=== PATIENT | male | born 1985 | race Caucasian/White ===

== ENCOUNTER 2021-10-06 12:07 | Outpatient (REF) | payer OTHER, SELFPAY | END 2021-10-06 12:08 | disposition home or self-care (01) | LOC: HO.LNP 12:07 | PROVIDERS: Visit Provider Physician Assistant Medical | DX: J02.9 Acute pharyngitis, unspecified (principal) | CPT/HCPCS: 87071 ==

== ENCOUNTER 2023-02-08 06:49 | Outpatient (REF) | payer OTHER, SELFPAY ==
[2023-02-08 12:40] LABS: Alanine Aminotransferase 56 U/L (0-40); Anion Gap 15 (12-20); Aspartate Amino Transferase 34 U/L (5-37); Blood Urea Nitrogen 14 mg/dL (9-16); Calcium 9.4 mg/dL (8.4-10.2); Carbon Dioxide 26 mmol/L (22-29); Chloride 107 mmol/L (96-108); Cholesterol 280 mg/dL; Estimated Glomerular Filt Rate > 60; Glucose Fasting 94 mg/dL (60-99); HDL Cholesterol 45 mg/dL; LDL Cholesterol Calculated 200 mg/dl; Potassium 4.6 mmol/L (3.3-5.1); Sodium 143 mmol/L (135-145); Triglycerides 177 mg/dL
== END 2023-02-08 06:50 | disposition home or self-care (01) ==
LOC: HO.HMGCLDS 06:49
PROVIDERS: PCP Internal Medicine; Visit Provider Internal Medicine
DX: E78.5 Hyperlipidemia, unspecified (principal); I10 Essential (primary) hypertension
CPT/HCPCS: 36415; 80048; 80061; 84450; 84460

== ENCOUNTER 2023-05-05 07:06 | Outpatient (REF) | payer OTHER, SELFPAY ==
[2023-05-05 12:00] LABS: Alanine Aminotransferase 71 U/L (0-40); Anion Gap 11 (12-20); Aspartate Amino Transferase 50 U/L (5-37); Blood Urea Nitrogen 17 mg/dL (9-16); Calcium 9.3 mg/dL (8.4-10.2); Carbon Dioxide 27 mmol/L (22-29); Chloride 106 mmol/L (96-108); Cholesterol 217 mg/dL; Estimated Glomerular Filt Rate > 60; Glucose Fasting 89 mg/dL (60-99); HDL Cholesterol 44 mg/dL; LDL Cholesterol Calculated 103 mg/dl; Potassium 3.4 mmol/L (3.3-5.1); Sodium 141 mmol/L (135-145); Triglycerides 353 mg/dL
== END 2023-05-05 07:07 | disposition home or self-care (01) ==
LOC: HO.HMGCLDS 07:06
PROVIDERS: PCP Internal Medicine; Visit Provider Internal Medicine
DX: I10 Essential (primary) hypertension (principal); E78.5 Hyperlipidemia, unspecified
CPT/HCPCS: 36415; 80048; 80061; 82550; 84450; 84460

== ENCOUNTER 2023-05-06 12:53 | Outpatient (AMB) | payer OTHER, SELFPAY ==
--- NOTE | 2023-05-06 13:15 | A.OFFPC_ITS ---
Vital Signs 05/06/23 13:16 Height 6 ft Weight 226 lb BMI 30.6 BP 128/90 H Blood Pressure Location Lt brachial Position Sitting Pulse 83 Pulse Source Pulse Oximeter Pulse Oximetry (%) 98 Oxygen Delivery Method Room Air Intake Visit Reasons: Medication review/labs Intake Note: Pt is here today c/o labs and med review Allergies No Known Allergies Allergy (Verified 06/28/23 02:30) Medication List - Last Reconciled 06/28/23 by Noemí Sanchez MD hydrochlorothiazide 12.5 mg PO QAM metoprolol succinate ER 50 mg PO DAILY rosuvastatin 5 mg PO DAILY Tobacco use date assessed: 05/06/23 Dental Screening Dental Screen Date: 05/06/23 Did you have a dental visit in the last 12 months?: No HPI Medication review/labs HPI Details 37-year-old male with dyslipidemia, and hypertension, here today for follow-up. Has been feeling well, compliant with medications, no complaints at present time. [facility] Medical History Anxiety and depression Dyslipidemia Essential hypertension Family History Father Substance use disorder Mother Syncope Sister No problems noted. Son No problems noted. Daughter No problems noted. Social History Housing: House Alcohol intake: current Patient Tobacco Use Status: Former Tobacco user e-Cigarette/Vaping Use: Currently Using Second Hand Smoke Exposure: Yes service: No Current occupational status: employed Current occupation: [employer] Current occupational exposures/hazards: Yes Cognitive needs: No Hearing needs: No Vision needs: Yes Questionnaire Thrive Questionnaire Date Thrive assessed: 11/05/22 AUDIT C Alcohol Use Questionnaire (AUDIT-C) 1. How often do you have a drink containing alcohol?: Monthly or less 2. How many drinks containing alcohol do you have on a typical day when you are drinking?: 1 or 2 3. How often do you have six or more drinks on one occasion?: Never Total Score: 1 ALEXX-7 AMB Questionnaire ALEXX-7 Date ALEXX - 7 assessed: 10/30/21 Source: Developed by Drs. Finn Leroy, Karen B.W. Angel Humphrey and colleagues, with an educational modesto from [employer]. Review of Systems Const Denies body aches, Denies fever(s), Denies headache(s) and Denies weakness ENT Denies dizziness, Denies headache(s), Denies nasal congestion, Denies nasal discharge and Denies sore throat Card Denies chest pain, Denies lightheadedness and Denies dyspnea Resp Denies chest congestion, Denies cough and Denies dyspnea GI Denies abdominal pain, Denies change in bowel habits and Denies heartburn Musc Reports no additional complaints Neuro Denies dizziness, Denies headache(s), Denies Sensory deficit (Neuro) and Denies weakness Physical exam (Primary Care) Vital Signs: Last Vital Signs Pulse 83 05/06/23 13:16 BP 128/90 H 05/06/23 13:16 Pulse Ox 98 05/06/23 13:16 Oxygen Delivery Method Room Air 05/06/23 13:16 BMI result Body Mass Index 30.6 Tobacco/Smoking Status: Tobacco use Status Tobacco use date assessed 05/06/23 05/06/23 13:24 Patient Tobacco Use Status Former Tobacco user 05/06/23 13:24 e-Cigarette/Vaping Use Currently Using 05/06/23 13:24 Thrive Assessment: Date of Thrive Assessment Date Thrive assessed 11/05/22 05/06/23 13:24 Const General: cooperative, no acute distress and alert Orientation/consciousness: patient oriented x3 HENMT Face and sinus: Yes face symmetric Mouth: Normal oral and palatal mucosa present, oropharynx normal and moist mucous membranes Neck Neck: Yes full ROM and Yes no lymphadenopathy Thyroid: Thyroid normal Resp Effort & Inspection: normal respiratory effort and able to speak in complete sentences Auscultation: clear to auscultation bilaterally Cardio Rate: regular rate Rhythm: regular rhythm Heart sounds: S1 normal heart sound present and S2 normal heart sound present GI Inspection: Yes normal to inspection Palpation (GI): Soft to palpation Auscultation: normal bowel sounds Neuro General: patient oriented x3, gait normal, moves all extremities, no focal motor deficits and CN's II-XI intact bilaterally Cognition (Neuro): normal cognition Gait exam (Neuro): Normal gait present Sensory Exam: No Sensory deficit (Neuro) Extrem General: Yes normal to inspection, Yes full ROM, Yes no pedal edema and Yes normal gait Results Reviewed Results Reviewed: RUN: 05/06/23 1351 PAGE 1 [facility] [address] [place] [id number] Tax Representative: Demario Lopez M.D. Specimen Inquiry Name: Ren Hawley Age/Sex: 37/M : 1985 Unit#: [id number] Attend Dr: Noemí Sanchez MD Re05/05/23 Status: DEP REF Location: [facility] Disch: SPEC : [id number] DYLLAN: 05/05/23 STATUS: COMP REQ : [id number] RECD: 05/05/23-[address]: Noemí Sanchez MD COMP: 05/05/23-1199 ENTERED: 05/05/23-[address]: ORDERED: Met Prof Fast, AST, ALT, CK Total, Lipid Panel Test Result Flag Reference Site Sodium 141 135-145 mmol/L Potassium 3.4 # 3.3-5.1 mmol/L CL 106 96-108 mmol/L CO2 27 22-29 mmol/L Gap 11 L 12-20 BUN 17 H 9-16 mg/dL Creat 0.86 0.5-1.4 mg/dL EGFR > 60 NOTE: For -Uz[place] individuals, multiply the result by 1.210. Chronic Kidney Disease: Estimated GFR < 60 mL/min/1.73m2 Severe Kidney Disease: Estimated GFR < 15 mL/min/1.73m2 FBS 89 60-99 mg/dL CA 9.3 8.4-10.2 mg/dL AST (GOT) 50 H 5-37 U/L ALT (GPT) 71 H 0-40 U/L CK Total 101 38-174 U/L Triglyceride 353 mg/dL Desirable Triglyceride: less than 150 mg/dL Borderline High Triglyceride 150-199 mg/dL High Triglyceride: 200-499 mg/dL Very High Triglyceride: greater than or equal to 5OO mg/dL Chol 217 mg/dL Desirable Cholesterol: less than 200 mg/dL Borderline High Cholesterol: 200-239 mg/dL High Cholesterol: greater than 239 mg/dL LDL Calculated 103 mg/dl Desirable LDL: less than 100 mg/dL Near Optimal/Above Optimal LDL: 110-129 mg/dL Borderline High LDL: 130-159 mg/dL High LDL: 160-189 mg/dL Very High LDL: greater than or equal to 190 mg/dL HDL 44 mg/dL Desirable HDL: greater than 40 mg/dL Note: This HDL assay may give artificially low results in patients with liver disease. Assessment and Plan Assessment & Plan (1) Essential hypertension: Code(s): I10 - Essential (primary) hypertension Plan: Blood pressure at goal of less than 130/80. Continue with metoprolol ER 50 mg daily hydrochlorothiazide 12.5 mg daily. Reinforced importance of following a low sodium diet, getting regular exercise, and lowering stress levels. (2) Dyslipidemia: Code(s): E78.5 - Hyperlipidemia, unspecified Plan: Reviewed recent fasting lipid profile with patient with levels within normal limits . Continue with rosuvastatin 5 mg daily , in addition to adherence to low-cholesterol diet and regular exercise, at least 30 minutes 3 to 4 times a week. Advised patient to make healthy food choices, eat more fruits, vegetables, whole grains, wild caught fish and low-fat dairy. Limit amount of meat and fried or fatty food products, as well as processed foods and fast foods. Follow-up scheduled with repeat fasting lipid panel in 6 months. Orders: Orders Alanine Aminotransferase 4 Months I10 - Essential (primary) hypertension, E78.5 - Hyperlipidemia, unspecified Aspartate Amino Transferase 4 Months I10 - Essential (primary) hypertension, E78.5 - Hyperlipidemia, unspecified Lipid Panel 4 Months I10 - Essential (primary) hypertension, E78.5 - Hyperlipidemia, unspecified Basic Metabolic Panel Fasting 4 Months I10 - Essential (primary) hypertension, E78.5 - Hyperlipidemia, unspecified Medications: Refilled metoprolol succinate ER 50 mg PO DAILY 90 tabs 1RF Coding Level of Care Code Est Pt Level 3 (79264) Diagnoses Essential hypertension I10 Dyslipidemia E78.5
[2023-05-06 13:16] VITALS: BP 128/90; PULSE 83; O2SAT 98; BMI 30.6
== END 2023-05-06 14:43 | disposition home or self-care (01) ==
PROVIDERS: Visit Provider Internal Medicine
DX: I10 Essential (primary) hypertension (principal); E78.5 Hyperlipidemia, unspecified
CPT/HCPCS: 99213

== ENCOUNTER 2023-09-07 07:23 | Outpatient (REF) | payer OTHER, SELFPAY ==
[2023-09-07 12:35] LABS: Alanine Aminotransferase 50 U/L (0-40); Anion Gap 14 (12-20); Aspartate Amino Transferase 32 U/L (5-37); Blood Urea Nitrogen 17 mg/dL (9-16); Calcium 9.6 mg/dL (8.4-10.2); Carbon Dioxide 24 mmol/L (22-29); Chloride 107 mmol/L (96-108); Cholesterol 199 mg/dL (<200); Estimated Glomerular Filt Rate > 60; Glucose Fasting 95 mg/dL (60-99); HDL Cholesterol 45 mg/dL (>40); LDL Cholesterol Calculated 109 mg/dL (<100); Potassium 3.7 mmol/L (3.3-5.1); Sodium 141 mmol/L (135-145); Triglycerides 226 mg/dL (<150)
== END 2023-09-07 07:24 | disposition home or self-care (01) ==
LOC: HO.HMGCLDS 07:23
PROVIDERS: PCP Internal Medicine; Visit Provider Internal Medicine
DX: I10 Essential (primary) hypertension (principal); E78.5 Hyperlipidemia, unspecified
CPT/HCPCS: 36415; 80048; 80061; 84450; 84460

== ENCOUNTER 2023-09-08 15:06 | Outpatient (AMB) | payer OTHER, SELFPAY ==
--- NOTE | 2023-09-08 15:11 | A.OFFPC_ITS ---
Vital Signs 09/08/23 15:12 Height 6 ft Weight 222 lb 4 oz BMI 30.1 BP 138/98 H Blood Pressure Location Rt brachial Position Sitting Pulse 86 Pulse Source Pulse Oximeter Pulse Oximetry (%) 95 Oxygen Delivery Method Room Air Intake Visit Reasons: follow up BP Intake Note: pt is here to follow up on lab results and HTN Allergies No Known Allergies Allergy (Verified 09/08/23 15:51) Medication List - Last Reconciled 09/08/23 by Noemí Sanchez MD hydrochlorothiazide 12.5 mg PO QAM metoprolol succinate ER 50 mg PO DAILY rosuvastatin 5 mg PO DAILY sildenafil (Viagra) 100 mg PO DAILY PRN Tobacco use date assessed: 09/08/23 Dental Screening Dental Screen Date: 09/08/23 Did you have a dental visit in the last 12 months?: No Did you have a dental problem in the last 6 months where you did not have access to dental care?: No Was dental information given to patient?: No HPI follow up BP HPI Details 38-year-old male with hypertension curre ntly on HCTZ 12.5 mg in the morning and metoprolol succinate ER 50 mg at night. Blood pressure today is slightly elevated. He had recent fasting labs done which showed presence of hypertriglyceridemia. Has been feeling well, has started going to the gym again to exercise, and has been trying to follow recommended diet. [facility] Medical History (Updated 09/09/23 @ 04:59 by Noemí Sanchez MD) Hypertriglyceridemia Anxiety and depression Essential hypertension Family History Father Substance use disorder Mother Syncope Sister No problems noted. Son No problems noted. Daughter No problems noted. Social History Housing: House Alcohol intake: current Patient Tobacco Use Status: Former Tobacco user e-Cigarette/Vaping Use: Currently Using Second Hand Smoke Exposure: Yes service: No Current occupational status: employed Current occupation: [employer] Current occupational exposures/hazards: Yes Cognitive needs: No Hearing needs: No Vision needs: Yes Questionnaire Thrive Questionnaire Date Thrive assessed: 11/05/22 ALEXX-7 AMB Questionnaire ALEXX-7 Date ALEXX - 7 assessed: 10/30/21 Source: Developed by Drs. Finn Leroy, Karen Humphrey, Angel Meeks and colleagues, with an educational modesto from [employer]. Review of Systems Const Denies body aches, Denies fever(s), Denies headache(s) and Denies weakness ENT Denies dizziness, Denies headache(s), Denies nasal congestion and Denies nasal discharge Card Denies chest pain, Denies lightheadedness and Denies dyspnea Resp Denies chest congestion, Denies cough and Denies dyspnea GI Denies abdominal pain, Denies change in bowel habits and Denies heartburn Musc Reports no additional complaints Neuro Denies dizziness, Denies headache(s), Denies Sensory deficit (Neuro) and Denies weakness Physical exam (Primary Care) Vital Signs: Last Vital Signs Pulse 86 09/08/23 15:12 BP 138/98 H 09/08/23 15:12 Pulse Ox 95 09/08/23 15:12 Oxygen Delivery Method Room Air 09/08/23 15:12 BMI result Body Mass Index 30.1 Tobacco/Smoking Status: Tobacco use Status Tobacco use date assessed 09/08/23 09/08/23 15:16 Patient Tobacco Use Status Former Tobacco user 09/08/23 15:16 e-Cigarette/Vaping Use Currently Using 09/08/23 15:16 Thrive Assessment: Date of Thrive Assessment Date Thrive assessed 11/05/22 09/08/23 15:16 Const General: cooperative, no acute distress and alert Orientation/consciousness: patient oriented x3 HENMT Face and sinus: Yes face symmetric Mouth: Normal oral and palatal mucosa present, oropharynx normal and moist mucous membranes Neck Neck: Yes full ROM and Yes no lymphadenopathy Thyroid: Thyroid normal Resp Effort & Inspection: normal respiratory effort and able to speak in complete sentences Auscultation: clear to auscultation bilaterally Cardio Rate: regular rate Rhythm: regular rhythm Heart sounds: S1 normal heart sound present and S2 normal heart sound present GI Inspection: Yes normal to inspection Palpation (GI): Soft to palpation Auscultation: normal bowel sounds Neuro General: patient oriented x3, gait normal, moves all extremities, no focal motor deficits and CN's II-XI intact bilaterally Cognition (Neuro): normal cognition Gait exam (Neuro): Normal gait present Sensory Exam: No Sensory deficit (Neuro) Extrem General: Yes normal to inspection, Yes full ROM, Yes no pedal edema and Yes normal gait Results Reviewed Results Reviewed: ENTERED: 09/07/23 FENG DUMONT: ORDERED: Met Prof Fast, AST, ALT, Lipid Panel Test Result Flag Reference Site Sodium 141 135-145 mmol/L Potassium 3.7 3.3-5.1 mmol/L CL 107 96-108 mmol/L CO2 24 22-29 mmol/L Gap 14 12-20 BUN 17 H 9-16 mg/dL Creat 0.81 0.5-1.4 mg/dL EGFR > 60 NOTE: For -[place] individuals, multiply the result by 1.210. Chronic Kidney Disease: Estimated GFR < 60 mL/min/1.73m2 Severe Kidney Disease: Estimated GFR < 15 mL/min/1.73m2 FBS 95 60-99 mg/dL CA 9.6 8.4-10.2 mg/dL AST (GOT) 32 5-37 U/L ALT (GPT) 50 H 0-40 U/L Triglyceride 226 H <150 mg/dL Desirable Triglyceride: less than 150 mg/dL Borderline High Triglyceride 150-199 mg/dL High Triglyceride: 200-499 mg/dL Very High Triglyceride: greater than or equal to 5OO mg/dL Cholesterol 199 <200 mg/dL Desirable Cholesterol: less than 200 mg/dL Borderline High Cholesterol: 200-239 mg/dL High Cholesterol: greater than 239 mg/dL LDL Calculated 109 H <100 mg/dL Desirable LDL: less than 100 mg/dL Near Optimal/Above Optimal LDL: 110-129 mg/dL Borderline High LDL: 130-159 mg/dL High LDL: 160-189 mg/dL Very High LDL: greater than or equal to 190 mg/dL HDL 45 >40 mg/dL Desirable HDL: greater than 40 mg/dL Note: This HDL assay may give artificially low results in patients with liver disease. Assessment and Plan Assessment & Plan (1) Essential hypertension: Code(s): I10 - Essential (primary) hypertension Plan: Blood pressure goal is less than 130/80. Continue with hydrochlorothiazide 25 mg daily in a.m. and added losartan 25 mg in the morning, continue with metoprolol succinate ER 50 mg to be taken at night with supper.. Reinforced importance of following a low sodium diet, getting regular exercise, and lowering stress levels. (2) Hypertriglyceridemia: Code(s): E78.1 - Pure hyperglyceridemia Plan: Reviewed recent fasting lipid profile with patient with high triglyceride levels, with normal LDL cholesterol. Continue with rosuvastatin , in addition to adherence to low-cholesterol diet and regular exercise, at least 30 minutes 3 to 4 times a week. Advised patient to make healthy food choices, eat more fruits, vegetables, whole grains, wild caught fish and low-fat dairy. Limit amount of meat and fried or fatty food products, as well as processed foods and fast foods. Follow-up scheduled with repeat fasting lipid panel in months. Medications: New losartan 25 mg PO DAILY 30 tabs 1RF Coding Level of Care Code Est Pt Level 3 (92386) Diagnoses Essential hypertension I10 Hypertriglyceridemia E78.1
[2023-09-08 15:12] VITALS: BP 138/98; PULSE 86; O2SAT 95; BMI 30.1
== END 2023-09-08 17:29 | disposition home or self-care (01) ==
PROVIDERS: PCP Internal Medicine; Visit Provider Internal Medicine
DX: I10 Essential (primary) hypertension (principal); E78.1 Pure hyperglyceridemia
CPT/HCPCS: 99213

== ENCOUNTER 2023-09-19 09:27 | Outpatient (AMB) | payer OTHER, SELFPAY ==
--- NOTE | 2023-09-19 10:26 | MHC.OFFWIV ---
Intake Vital Signs 09/19/23 10:29 Height 6 ft Weight 102.115 kg BMI 30.5 BP 128/86 Blood Pressure Location Lt brachial Position Sitting Pulse 78 Pulse Source Pulse Oximeter Temp 98.6 F Temp Source Oral Pulse Oximetry (%) 97 Oxygen Delivery Method Room Air Intake Visit Reasons: EP, dizziness, ear blockage ([phone]) Intake Note: pt woke Tuesday with both ears blocked and he flushed his ears but now one ear is still blocked and now pt is dizzy and has a constant wind sound in his ears Patient Tobacco Use Status: Former Tobacco user Allergies No Known Allergies Allergy (Verified 09/19/23 10:28) HPI EP, dizziness, ear blockage ([phone]) HPI Details Patient presents with discomfort in his ears and ear blockage. He called his PCP told him to use OTC care from the pharmacy he did have success removing wax from the right ear but now it feels like he is hearing a wind sound in that ear. The left ear continues to be completely blocked. He is having mild dizziness since this without focal weakness. He admits to some nasal and ear congestion. [facility] Medical History (Updated 09/09/23 @ 04:59 by Noemí Sanchez MD) Hypertriglyceridemia Anxiety and depression Essential hypertension Family History Father Substance use disorder Mother Syncope Sister No problems noted. Son No problems noted. Daughter No problems noted. Social History Housing: House Alcohol intake: current Patient Tobacco Use Status: Former Tobacco user e-Cigarette/Vaping Use: Currently Using Second Hand Smoke Exposure: Yes service: No Current occupational status: employed Current occupation: [employer] Current occupational exposures/hazards: Yes Cognitive needs: No Hearing needs: No Vision needs: Yes Review of Systems Const Reports as per HPI and Reports no additional complaints ENT Reports no additional complaints and Reports as per HPI Card Reports as per HPI and Reports no additional complaints Resp Reports as per HPI and Reports no additional complaints Neuro Reports no additional complaints, Reports as per HPI and Denies Abnormal speech present Physical Exam Vital Signs: Last Vital Signs Temp 98.6 F 09/19/23 10:29 Pulse 78 09/19/23 10:29 BP 128/86 11/06/23 10:29 Pulse Ox 97 09/19/23 10:29 Oxygen Delivery Method Room Air 09/19/23 10:29 BMI result Body Mass Index 30.5 Const General: cooperative, comfortable and no acute distress Orientation/consciousness: patient oriented x3 HEENT Head: Yes normal to inspection Ears: hearing grossly normal bilaterally, TM normal on the right, mastoids normal, no periauricular adenopathy and Abnormal EAC present cerumen impaction on the left General nose exam: Normal nasal mucous membranes and turbinates present Eyes Pupils: Equal, round and reactive pupils present Resp Effort & Inspection: normal respiratory effort Auscultation: clear to auscultation bilaterally Cardio Rate: regular rate Rhythm: regular rhythm Heart sounds: S1 normal heart sound present and S2 normal heart sound present Neuro General: patient oriented x3 and gait normal Cranial nerves: Yes CN's II-XII intact bilaterally and Yes Equal, round and reactive pupils present Cognition (Neuro): normal cognition Speech: No Abnormal speech present Gait exam (Neuro): Normal gait present Motor exam (neuro): 5/5 motor strength present throughout Office Procedures Cerumen Removal From which ear canal was the cerumen removed: left Removal: irrigation Notes: patient tolerated procedure well, no complications and ear canal clear [id number] Irrigation/Lavage Assessment & Plan Assessment & Plan (1) Cerumen impaction: Code(s): H61.20 - Impacted cerumen, unspecified ear Qualifiers: Laterality: left Qualified Code(s): H61.22 - Impacted cerumen, left ear Plan: Cerumen successfully removed with lavage. Patient tolerated procedure well TM normal and canal clear. (2) Eustachian tube dysfunction: Code(s): H69.90 - Unspecified Eustachian tube disorder, unspecified ear Qualifiers: Laterality: bilateral Qualified Code(s): H69.93 - Unspecified Eustachian tube disorder, bilateral Plan: Patient to trial a few days of Sudafed to see if this resolves the fluid sensation in his ears and improves as mild vertigo. Return to clinic if symptoms do not improve. ER vertigo with severe or develops weakness or other symptoms. Coding Level of Care Code Est Pt Level 3 (70913) Diagnoses Impacted cerumen of left ear H61.22 Laterality: left Dysfunction of both eustachian tubes H69.93 Laterality: bilateral CPT Codes Office Procedure - CPT: 53059-Xwv Irrigation/Lavage ([id number])
[2023-09-19 10:29] VITALS: BP 128/86; PULSE 78; TEMP 37; O2SAT 97; BMI 30.5
== END 2023-09-19 10:59 | disposition home or self-care (01) ==
PROVIDERS: PCP Internal Medicine; Visit Provider Physician Assistant
DX: H69.93 Unspecified Eustachian tube disorder, bilateral (principal); H61.22 Impacted cerumen, left ear
CPT/HCPCS: 69209; 99213

== ENCOUNTER 2023-12-28 10:51 | Outpatient (AMB) | payer OTHER, SELFPAY ==
[2023-12-28 11:05] VITALS: BP 120/90; PULSE 78; O2SAT 96; BMI 30.8
--- NOTE | 2023-12-28 11:05 | MHC.PC.OV ---
Vital Signs 12/28/23 11:05 Height 6 ft Weight 227 lb BMI 30.8 BP 120/90 H Blood Pressure Location Lt brachial Position Sitting Pulse 78 Pulse Source Pulse Oximeter Pulse Oximetry (%) 96 Oxygen Delivery Method Room Air Intake Visit Reasons: Annual PE Intake Note: Pt is here today for his PE Allergies No Known Allergies Allergy (Verified 12/28/23 11:32) Medication List - Last Reconciled 12/28/23 by Noemí Sanchez MD hydrochlorothiazide 12.5 mg PO QAM losartan 25 mg PO DAILY metoprolol succinate ER 50 mg PO DAILY rosuvastatin 5 mg PO DAILY sildenafil (Viagra) 100 mg PO DAILY PRN Tobacco use date assessed: 12/28/23 Dental Screening Dental Screen Date: 12/28/23 Did you have a dental visit in the last 12 months?: No Was dental information given to patient?: Patient has dentist HPI Annual PE HPI Details 38-year-old male with hypertension, hyperlipidemia, and history of erectile dysfunction, here today for his physical exam. Blood pressure stable and controlled on present treatment. Last fasting lipids showed elevated triglycerides but normal LDL cholesterol. Not following any particular diet, and does not get any regular exercise. Positive PHQ-9 and alexx score on today's visit. Previously was on escitalopram . States that he is able to control his anxiety and mood swings through behavioral techniques, does not want to start any medication at present time and does not want to seek counseling. Patient states also that he has been noticing some numbness and tingling in both hands when he wakes up in the morning, goes away once he starts moving around. He also has been noticing some tremors in both hands, not accompanied by any weakness. [facility], [facility] Medical History (Updated 12/29/23 @ 01:38 by Noemí Sanchez MD) Alcohol use disorder Tremor of left hand Numbness and tingling in both hands Hypertriglyceridemia Anxiety and depression Essential hypertension Family History Father Substance use disorder Mother Syncope Sister No problems noted. Son No problems noted. Daughter No problems noted. Social History Housing: House Alcohol intake: current Patient Tobacco Use Status: Former Tobacco user e-Cigarette/Vaping Use: Currently Using Second Hand Smoke Exposure: Yes service: No Current occupational status: employed Current occupation: [employer] Current occupational exposures/hazards: Yes Cognitive needs: No Hearing needs: No Vision needs: Yes Questionnaire PHQ-9 Over the last 2 weeks, how often have you been bothered by any of the following problems? 1. Little interest or pleasure in doing things: not at all 2. Feeling down, depressed, or hopeless: several days 3. Trouble falling or staying asleep, or sleeping too much: several days 4. Feeling tired or having little energy: several days 5. Poor appetite or overeating: several days 6. Feeling bad about yourself - or that you are a failure or have let yourself or your family down: several days 7. Trouble concentrating on things, such as reading the newspaper or watching television: not at all 8. Moving or speaking so slowly that other people could have noticed. Or the opposite - being so fidgety or restless that you have been moving around a lot more than usual: several days 9. Thoughts that you would be better off or of hurting yourself in some way: not at all Total score: 6 Depression Screening Interpretation: Positive Depression Screening Follow-up: Existing condition and Community Mental Health Worker F/U Depression Screening Done: Yes 94079 - PHQ-9 Billing: Yes Source: Developed by Drs. Finn Leroy, Karen Humphrey, Angel Meeks and colleagues, with an educational modesto from [employer]. Thrive Questionnaire Date Thrive assessed: 12/28/23 I am a: Patient What is your living situation today?: I have a steady place to live Within the past 12 months, did the food you bought not last and you didn't have the money to get more?: Sometimes True Within the past 12 months, did you worry whether your food would run out before you got money to buy more?: Sometimes True Do you have trouble paying for medicines?: No Do you have trouble getting transportation to medical appointments?: No Do you have trouble paying your heating and electricity bill?: No Do you have trouble taking care of your child, family member or friend?: No Do you have trouble with day-to-day activities such as bathing, preparing meals, shopping, managing finances, etc.?: No Are you currently unemployed and looking for a job?: No Are you interested in more education?: No THRIVE Score: 2 AUDIT C Alcohol Use Questionnaire (AUDIT-C) 1. How often do you have a drink containing alcohol?: 4 or more times a week 2. How many drinks containing alcohol do you have on a typical day when you are drinking?: 3 or 4 3. How often do you have six or more drinks on one occasion?: Weekly Total Score: 8 Score Reviewed/Action Taken: Yes ALEXX-7 AMB Questionnaire ALEXX-7 Date ALEXX - 7 assessed: 12/28/23 Feeling nervous, anxious, or on edge: 2 = More than half the days Not being able to stop or control worryin = More than half the days Worrying too much about different things: 2 = More than half the days Trouble relaxin = More than half the days Being so restless that it is hard to sit still: 1 = Several days Becoming easily annoyed or irritable: 2 = More than half the days Feeling afraid as if something awful might happen: 1 = Several days Total ALEXX-7 score (0-4 normal; 5-9 mild; 10-14 moderate; 15-21 severe): 12 Source: Developed by Drs. Finn Leroy, Karen Humphrey, Angel Meeks and colleagues, with an educational modesto from [employer]. ALEXX-7 Assessment Billing ALEXX-7 Assessment Tool: ALEXX-7 Assessment 80223 Review of Systems Const Denies fever(s), Denies headache(s) and Denies weakness Eyes Details: Up-to-date with his eye exam Denies change in vision ENT Denies dizziness, Denies headache(s), Denies nasal congestion and Denies nasal discharge Card Denies chest pain, Denies lightheadedness and Denies dyspnea Resp Denies chest congestion, Denies cough and Denies dyspnea GI Denies abdominal pain, Denies change in bowel habits and Denies heartburn Reports no additional complaints Musc Reports as per HPI Skin/Breast Denies lesions and Denies rash Neuro Reports as per HPI, Denies dizziness, Denies headache(s), Denies Sensory deficit (Neuro) and Denies weakness Psych Reports as per HPI Endo Reports no additional complaints Anam/Lymph Reports no additional complaints Aller/Immun Reports no additional complaints Physical exam (Primary Care) Vital Signs: Last Vital Signs Pulse 78 12/28/23 11:05 BP 120/90 H 12/28/23 11:05 Pulse Ox 96 12/28/23 11:05 Oxygen Delivery Method Room Air 12/28/23 11:05 BMI result Body Mass Index 30.8 Tobacco/Smoking Status: Tobacco use Status Tobacco use date assessed 12/28/23 12/28/23 11:08 Patient Tobacco Use Status Former Tobacco user 12/28/23 11:08 e-Cigarette/Vaping Use Currently Using 12/28/23 11:08 PHQ-9: PHQ-9 Score PHQ-9: Total score 6 12/29/23 01:33 Depression Screening Interpretation: Positive Depression Screening Follow-up: Existing condition and Community Mental Health Worker F/U Thrive Assessment: Date of Thrive Assessment Date Thrive assessed 12/28/23 12/28/23 11:29 Const General: cooperative, no acute distress and alert Orientation/consciousness: patient oriented x3 HENMT Face and sinus: Yes face symmetric Mouth: Normal oral and palatal mucosa present, oropharynx normal and moist mucous membranes Neck Neck: Yes full ROM and Yes no lymphadenopathy Thyroid: Thyroid normal Resp Effort & Inspection: normal respiratory effort and able to speak in complete sentences Auscultation: clear to auscultation bilaterally Cardio Rate: regular rate Rhythm: regular rhythm Heart sounds: S1 normal heart sound present and S2 normal heart sound present GI Inspection: Yes normal to inspection Palpation (GI): Soft to palpation Auscultation: normal bowel sounds Male General Exam: Yes normal external exam Back/Spine/Pelvis Back: No back tenderness Skin General skin exam: no rashes or lesions noted Neuro General: patient oriented x3, gait normal, moves all extremities, no focal motor deficits and CN's II-XI intact bilaterally Cognition (Neuro): normal cognition Gait exam (Neuro): Normal gait present Motor exam (neuro): 5/5 motor strength present throughout Sensory Exam: No Sensory deficit (Neuro) Extrem Other: Slight fine tremor noted on left hand General: Yes normal to inspection, Yes full ROM, Yes no pedal edema and Yes normal gait Psych Appearance: grossly normal and well kempt Mental Status: mental status grossly normal Speech and movement: Normal speech and movement present Affect: normal affect Attitude: cooperative Thought process: Normal thought process present Thought content: Normal thought content present Assessment and Plan Assessment & Plan (1) Tremor of left hand: Code(s): R25.1 - Tremor, unspecified Plan: Advised to cut back abstain from any alcohol intake, will check vitamin-D level, vitamin B6, vitamin-D B12 level is as well as thyroid (2) Hypertriglyceridemia: Code(s): E78.1 - Pure hyperglyceridemia Plan: last fasting lipid profile showed elevated triglycerides with normal LDL cholesterol , ordered a repeat fasting lipid panel to be done. . Continue with rosuvastatin 5 mg daily , in addition to adherence to low-cholesterol diet and regular exercise, at least 30 minutes 3 to 4 times a week. Advised patient to make healthy food choices, eat more fruits, vegetables, whole grains, wild caught fish and low-fat dairy. Limit amount of meat and fried or fatty food products, as well as processed foods and fast foods. (3) Anxiety and depression: Code(s): F41.9 - Anxiety disorder, unspecified; F32.A - Depression, unspecified Plan: Declined referral for counseling or starting any medication. Discussed other ways to control anxiety, stressed importance of stopping alcohol intake (4) Essential hypertension: Code(s): I10 - Essential (primary) hypertension Plan: Blood pressure at goal of less than 130/80. Continue with current medication. Reinforced importance of following a low sodium diet, getting regular exercise, and lowering stress levels. (5) Annual visit for general adult medical examination with abnormal findings: Code(s): Z00.01 - Encounter for general adult medical examination with abnormal findings Plan: Will check appropriate labs. Up-to-date with his dental visit every 6 months and regular eye exams, at least every 2 years. Advised to do regular self testicular exam check for any mass. Does not want to get any vaccines (6) Numbness and tingling in both hands: Code(s): R20.0 - Anesthesia of skin; R20.2 - Paresthesia of skin Plan: Ordered nerve conduction test for upper extremities, ordered magnesium level, strongly advised to abstain from any alcohol intake (7) Alcohol use disorder: Code(s): F10.90 - Alcohol use, unspecified, uncomplicated Plan: Patient advised to start cutting back on his alcohol intake and quit altogether. Offered referral for alcohol anonymous but patient declined Orders: Orders Lipid Panel 6 Weeks E78.1 - Pure hyperglyceridemia, F32.A - Depression, unspecified, F41.9 - Anxiety disorder, unspecified, I10 - Essential (primary) hypertension, Z00.01 - Encounter for general adult medical examination with abnormal findings Vitamin D 25-OH Total 6 Weeks E78.1 - Pure hyperglyceridemia, F32.A - Depression, unspecified, F41.9 - Anxiety disorder, unspecified, I10 - Essential (primary) hypertension, Z00.01 - Encounter for general adult medical examination with abnormal findings Vitamin B6 6 Weeks R20.0 - Anesthesia of skin, R20.2 - Paresthesia of skin, R25.1 - Tremor, unspecified Comprehensive [place]. Panel Fast 6 Weeks E78.1 - Pure hyperglyceridemia, F32.A - Depression, unspecified, F41.9 - Anxiety disorder, unspecified, I10 - Essential (primary) hypertension, Z00.01 - Encounter for general adult medical examination with abnormal findings Vitamin B12 and Folate 6 Weeks R20.0 - Anesthesia of skin, R20.2 - Paresthesia of skin, R25.1 - Tremor, unspecified TSH reflex Free T4 6 Weeks R20.0 - Anesthesia of skin, R20.2 - Paresthesia of skin, R25.1 - Tremor, unspecified Magnesium 6 Weeks R20.0 - Anesthesia of skin, R20.2 - Paresthesia of skin, R25.1 - Tremor, unspecified Vitamin B1 6 Weeks R20.0 - Anesthesia of skin, R20.2 - Paresthesia of skin, R25.1 - Tremor, unspecified NE nerve conduction velocity 12/28/23 R20.0 - Anesthesia of skin, R20.2 - Paresthesia of skin, R25.1 - Tremor, unspecified Medications: Refilled hydrochlorothiazide 12.5 mg PO QAM 90 caps 1RF Coding Level of Care Code Est Pt Prev Care 18-39y(85175) Diagnoses Tremor of left hand R25.1 Hypertriglyceridemia E78.1 Anxiety and depression F41.9; F32.A Essential hypertension I10 Annual visit for general adult medical examination with abnormal findings Z00.01 Numbness and tingling in both hands R20.0; R20.2 Alcohol use disorder F10.90 Additional Codes ALEXX-7 Assessment Billing - ALEXX-7 Assessment Tool: ALEXX-7 Assessment 19359 ([id number])
== END 2023-12-28 11:57 | disposition home or self-care (01) ==
PROVIDERS: PCP Internal Medicine; Visit Provider Internal Medicine
DX: Z00.01 Encounter for general adult medical examination with abnormal findings (principal); R25.1 Tremor, unspecified; E78.1 Pure hyperglyceridemia; F41.9 Anxiety disorder, unspecified; F32.A Depression, unspecified; I10 Essential (primary) hypertension; R20.0 Anesthesia of skin; R20.2 Paresthesia of skin; F10.90 Alcohol use, unspecified, uncomplicated
CPT/HCPCS: 99395

== ENCOUNTER 2024-01-12 08:41 | Outpatient (REF) | payer OTHER, SELFPAY ==
--- NOTE | 2024-01-12 08:44 | EMG_ITS ---
Bilateral median and ulnar motor and sensory studies were performed. Bilateral radial sensory studies were performed. Bilateral median and lateral antecubital brachial sensory studies were performed, and paraspinal muscles were tested with a needle. IMPRESSION: 1. 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 2. Mild left ulnar neuropathy across cubital tunnel. MD ROSCOE Muñoz/ASAEL / [phone]
== END 2024-01-12 08:42 | disposition home or self-care (01) ==
LOC: HO.NEURO 08:41
PROVIDERS: PCP Internal Medicine; Visit Provider Internal Medicine
DX: R25.1 Tremor, unspecified (principal); R20.0 Anesthesia of skin; R20.2 Paresthesia of skin
CPT/HCPCS: 95886; 95913

== ENCOUNTER 2024-03-26 10:44 | Outpatient (AMB) | payer OTHER, SELFPAY ==
--- NOTE | 2024-03-26 11:13 | MHC.OFFVIS ---
Intake Visit Reasons: Vasectomy Consult Intake Note: New Patient presents for initial visit for vasectomy consult Urology Medications: none Blood Thinner: none Children #2 Expected Children# 0 Net Making Supervisor Required: No Accompanied by: Self / Same As Patient Allergies No Known Allergies Allergy (Verified 03/26/24 11:46) Medication List - Last Reconciled 03/26/24 by BRENNEN NixonP-BC hydrochlorothiazide 12.5 mg PO QAM losartan 25 mg PO DAILY metoprolol succinate ER 50 mg PO DAILY rosuvastatin 5 mg PO DAILY sildenafil (Viagra) 100 mg PO DAILY PRN HPI Comments Details: Ren Abraham is a very pleasant 38-year-old male patient of Dr. Sanchez. He has a past medical history of alcohol use disorder, tremor left hand, hypertriglyceridemia, anxiety, depression, and hypertension. He presents to the office today for vasectomy evaluation. In discussion with the patient today he reports previously attempting to undergo vasectomy approximately 10 years ago however was unable to due to anxiety. Vasectomy evaluation The patient presents for vasectomy consultation.? He is currently He has fathered -2 children, with a single partner. 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 The vasectomy may be complicated due to a history of no complicating issues. Patient education has been provided via AUA video, via printed information, risks of failure, recovery time, bruising and potential pain syndrome have been stressed Discussion today focused on the presence of vasectomy and the risks, benefits and alternatives that are available. Vasectomy as intended as a permanent form of control. Printed information and literature was provided to the patient. Overall there is a one in 2500 failure rate. This can occur at any time after vasectomy. Risks were discussed highlighting hematoma, spermatocele, epididymal congestion, development of sperm antibodies, and development of chronic pain estimated between 1-5%. The procedure was reviewed in detail. Anatomical diagrams of the male genitalia were used to explain the location of the vas deferens. The vas deferens will be transected, the proximal end will be cauterized, a metal clip would be applied to separate the 2 vas deferens ends. It was explained the procedure will be done in the office and takes approximately 10-15 minutes. Less common problems that arise with vasectomy include hematoma, bleeding, allergic reaction to anesthetic, epididymal infection, epididymal congestion, scrotal discomfort, spermatic leak, spermatic granuloma and the possibility of antisperm antibodies. He understands these risks and wishes to proceed. Consent was signed at the office today. He also understands that it takes 12 weeks for sperm to fully clear the system. He will need to provide a semen sample at 12 weeks and if this is not clear a 2nd sample at 16 weeks. Medical clearance to stop using protection will only be provided if he satisfies published criteria for sperm clearance. [facility] Medical History Alcohol use disorder Tremor of left hand Numbness and tingling in both hands Hypertriglyceridemia Anxiety and depression Essential hypertension Family History Father Substance use disorder Mother Syncope Sister No problems noted. Son No problems noted. Daughter No problems noted. Social History Housing: House Alcohol intake: current Patient Tobacco Use Status: Former Tobacco user e-Cigarette/Vaping Use: Currently Using Second Hand Smoke Exposure: Yes service: No Current occupational status: employed Current occupation: [employer] Current occupational exposures/hazards: Yes Cognitive needs: No Hearing needs: No Vision needs: Yes Review of Systems Const Reports no additional complaints Eyes Reports no additional complaints ENT Reports no additional complaints Card Reports as per HPI Resp Reports no additional complaints GI Reports no additional complaints Reports as per HPI Musc Reports no additional complaints Neuro Reports as per HPI Psych Reports as per HPI Endo Reports no additional complaints Anam/Lymph Reports no additional complaints Aller/Immun Reports no additional complaints Physical Exam Const General: cooperative, healthy appearing, comfortable, no acute distress, well developed, alert and awake Nutritional Appearance: average body habitus Orientation/consciousness: patient oriented x3 Limitations: no limitations HEENT Head: Yes normal to inspection, Yes normocephalic and Yes atraumatic Ears: hearing grossly normal bilaterally Eyes General: appearance normal, both eyes and all related structures Neck Neck: Yes normal visual inspection and Yes trachea midline Chest Chest palpation & inspection: normal inspection of the chest Resp Effort & Inspection: normal respiratory effort and able to speak in complete sentences Cardio Rate: regular rate GI Inspection: Yes normal to inspection General: Yes no CVA tenderness Male General Exam: Yes normal external exam Penis: normal penis Meatus: meatus normal Scrotum: scrotum normal Testes: Testes normal Back/Spine/Pelvis Back: no CVA tenderness Skin General skin exam: no rashes or lesions noted Neuro General: patient oriented x3 Extrem General: Yes normal to inspection Psych Appearance: grossly normal and well kempt Mental Status: mental status grossly normal Speech and movement: Normal speech and movement present and Clear speech present Affect: normal affect Attitude: cooperative Thought process: Normal thought process present Thought content: Normal thought content present Insight: Fair insight present (Psych) Judgement: Fair judgement present (Psych) Results AMB Urinalysis, Automated UA Leukoctes 0 Madeleine/uL Last Edit by Stacey Sandersapollo on 03/26/24 11:29 UA Nitrite Last Edit by [employer]nadya Sandersapollo on 03/26/24 11:29 UA Urobilinogen 0.2 mg/dL Last Edit by [employer] Marilynapollo on 03/26/24 11:29 UA Protein 0 mg/dL Last Edit by Stacey Sandersapollo on 03/26/24 11:29 UA pH 6.5 Last Edit by Mem[employer] Acquis[employer]nadya Sandersapollo on 03/26/24 11:29 UA Blood 10 Jorge/uL Last Edit by [employer] Marilynapollo on 03/26/24 11:29 UA Specific [place] 1.015 Last Edit by [employer] Marilynapollo on 03/26/24 11:29 UA Ketone Last Edit by [employer] Marilynapollo on 03/26/24 11:29 UA Bilirubin 0 mg/dL Last Edit by MemoIn[employer]nadya Sandersapollo on 03/26/24 11:29 UA Glucose 0 mg/dL Last Edit by Appuri[employer]ollo on 03/26/24 11:29 Results Reviewed Results Reviewed: Laboratory Last Values Urine pH (Auto) 6.5 03/26/24 11:27 Specific [place] (Auto) 1.015 03/26/24 11:27 Urine Protein (Auto) 0 mg/dL 03/26/24 11:27 Glucose (UA)(Auto) 0 mg/dL 03/26/24 11:27 Urine Blood (Auto) 10 Jorge/uL 03/26/24 11:27 Urine Bilirubin (Auto) 0 mg/dL 03/26/24 11:27 Urine Urobilinogen (Auto) 0.2 mg/dL 03/26/24 11:27 Leukocyte Esterase (Auto) 0 Madeleine/uL 03/26/24 11:27 Assessment & Plan Assessment & Plan (1) Anxiety about health: Code(s): R45.89 - Other symptoms and signs involving emotional state Category: Medical (2) Vasectomy evaluation: Code(s): Z30.09 - Encounter for other general counseling and advice on contraception Category: Medical Plan In office urinalysis results reviewed with the patient today; as noted above. Discussed risks and benefits of vasectomy; as noted above. Discussed specific instructions regarding medications provided All questions were answered Discussed in office semen analysis verses fellows; information provided Will schedule for vasectomy Follow-up per doctor's orders or sooner with any issues, concerns, and or questions. Orders: Orders AMB Urinalysis Automated Today Z13.9 - Encounter for screening, unspecified Medications: New diazepam Take medication after arrival at office 2 mg PO BID PRN 2 tabs 0RF anxiety 1 day R45.89 - Other symptoms and signs involving emotional state acetaminophen-codeine 300-30 mg 1 tab PO Q8H 9 tabs 0RF 3 days R45.89 - Other symptoms and signs involving emotional state Patient Instructions: The patient had an opportunity to ask questions regarding the treatment plan. All questions were answered. Physical exam, labs, and imaging were discussed and reviewed in detail. As well as risks, benefits, and discussion of treatment choices. No major barriers to understanding were identified. The patient expressed understanding and agreement with the above treatment plan. The patient was made aware they should contact our office by phone for worsening of their current condition, the appearance of new symptoms, or with any questions or concerns. Compliance is encouraged with any medications and follow up testing that is ordered. It is a privilege to be allowed the opportunity to participate in? your urological care.? Again, if you have any questions or concerns If you have any questions or concerns please do not hesitate to contact me. The office is [phone]. This note is constructed using voice recognition software. While every effort has been made to ensure accuracy nutrition partner errors may have been included. Yours sincerely, KELLE Nixon Coding Level of Care Code New Pt Level 4 (43379) Diagnoses Anxiety about health R45.89 Vasectomy evaluation Z30.09
== END 2024-03-26 11:47 | disposition home or self-care (01) ==
PROVIDERS: PCP Internal Medicine; Visit Provider Nurse Practitioner Family
DX: R45.89 Other symptoms and signs involving emotional state (principal); Z30.09 Encounter for other general counseling and advice on contraception; Z13.9 Encounter for screening, unspecified
CPT/HCPCS: 99204

== ENCOUNTER → 2024-03-26 10:44 | Outpatient (BNVA) | payer OTHER, SELFPAY | PROVIDERS: PCP Internal Medicine; Visit Provider Nurse Practitioner Family | DX: Z30.09 Encounter for other general counseling and advice on contraception (principal); F41.8 Other specified anxiety disorders | CPT/HCPCS: 81003 ==

== ENCOUNTER 2024-04-26 08:25 | Outpatient (REF) | payer OTHER, SELFPAY ==
[2024-04-26 11:07] LABS: Alanine Aminotransferase 42 U/L (0-40); Albumin Level 4.5 g/dL (3.5-5.0); Alkaline Phosphatase 60 U/L (39-117); Anion Gap 13 (12-20); Aspartate Amino Transferase 32 U/L (5-37); Bilirubin Total 0.7 mg/dL (0.0-1.0); Blood Urea Nitrogen 18 mg/dL (9-16); Calcium 9.9 mg/dL (8.4-10.2); Carbon Dioxide 27 mmol/L (22-29); Chloride 103 mmol/L (96-108); Cholesterol 224 mg/dL (<200); Estimated Glomerular Filt Rate > 60; Glucose Fasting 100 mg/dL (60-99); HDL Cholesterol 48 mg/dL (>40); LDL Cholesterol Calculated 123 mg/dL (<100); Magnesium 2.1 mg/dL (1.6-2.6); Potassium 3.7 mmol/L (3.3-5.1); Sodium 139 mmol/L (135-145); Total Protein 7.5 g/dL (6.5-8.0); Triglycerides 265 mg/dL (<150)
[2024-04-26 11:11] LABS: TSH reflex Free T4 1.65 uIU/mL (0.32-4.0)
[2024-04-26 11:19] LABS: Vitamin B12 369 pg/mL (200-900)
[2024-05-03 06:18] LABS: Vitamin B6 23.8 ng/mL (2.1-21.7)
[2024-05-04 18:39] LABS: Vitamin B1 17 nmol/L (8-30)
== END 2024-04-26 08:26 | disposition home or self-care (01) ==
LOC: HO.HMGCLDS 08:25
PROVIDERS: PCP Internal Medicine; Visit Provider Internal Medicine
DX: Z00.01 Encounter for general adult medical examination with abnormal findings (principal); R20.0 Anesthesia of skin; R20.2 Paresthesia of skin; R25.1 Tremor, unspecified; E78.1 Pure hyperglyceridemia; F41.9 Anxiety disorder, unspecified; F32.A Depression, unspecified; I10 Essential (primary) hypertension
CPT/HCPCS: 36415; 80053; 80061; 82306; 82607; 82746; 83735; 84207; 84425; 84443

== ENCOUNTER 2024-06-14 15:36 | Outpatient (AMB) | payer OTHER, SELFPAY ==
[2024-06-14 15:44] VITALS: BP 120/82; PULSE 87; O2SAT 96; BMI 30.6
--- NOTE | 2024-06-14 15:44 | MHC.PC.OV ---
Vital Signs 06/14/24 15:44 Height 6 ft Weight 226 lb BMI 30.6 BP 120/82 Blood Pressure Location Lt brachial Position Sitting Pulse 87 Pulse Source Pulse Oximeter Pulse Oximetry (%) 96 Oxygen Delivery Method Room Air Intake Visit Reasons: 6 month follow up Intake Note: Pt is here today for his 6 mo. f/u HTN Allergies No Known Allergies Allergy (Verified 06/17/24 18:06) Medication List - Last Reconciled 06/17/24 by Noemí Sanchez MD hydrochlorothiazide 12.5 mg PO QAM losartan 25 mg PO DAILY metoprolol succinate ER 50 mg PO DAILY rosuvastatin 5 mg PO DAILY sildenafil (Viagra) 100 mg PO DAILY PRN Tobacco use date assessed: 06/14/24 Dental Screening Dental Screen Date: 06/14/24 Did you have a dental visit in the last 12 months?: No Did you have a dental problem in the last 6 months where you did not have access to dental care?: No Was dental information given to patient?: Patient has dentist HPI 6 month follow up HPI Details Male here today for follow-up regarding his hypertension and elevated cholesterol levels. Currently taking hydrochlorothiazide , metoprolol succinate and losartan, with blood pressure stable controlled on these medications. Takes rosuvastatin 5 mg once a day and has been compliant with his diet and gets regular exercise. Latest fasting labs showed lipids were within normal limits except for elevated triglycerides, fasting glucose borderline high, normal TSH and normal vitamin-D level. Liver enzyme however is mildly elevated. He does admit to drinking whiskey about 2 to 3 times a week. FORMERLY [facility], [facility] Medical History (Updated 06/14/24 @ 16:05 by Noemí Sanchez MD) Excessive vitamin B6 intake Impaired fasting glucose Alcohol use disorder Tremor of left hand Numbness and tingling in both hands Hypertriglyceridemia Anxiety and depression Essential hypertension Family History Father Substance use disorder Mother Syncope Sister No problems noted. Son No problems noted. Daughter No problems noted. Social History Housing: House Alcohol intake: current Patient Tobacco Use Status: Former Tobacco user e-Cigarette/Vaping Use: Currently Using Second Hand Smoke Exposure: Yes service: No Current occupational status: employed Current occupation: [employer] Current occupational exposures/hazards: Yes Cognitive needs: No Hearing needs: No Vision needs: Yes Questionnaire PHQ-9 Over the last 2 weeks, how often have you been bothered by any of the following problems? 1. Little interest or pleasure in doing things: not at all 2. Feeling down, depressed, or hopeless: not at all 3. Trouble falling or staying asleep, or sleeping too much: not at all 4. Feeling tired or having little energy: not at all 5. Poor appetite or overeating: several days 6. Feeling bad about yourself - or that you are a failure or have let yourself or your family down: not at all 7. Trouble concentrating on things, such as reading the newspaper or watching television: not at all 8. Moving or speaking so slowly that other people could have noticed. Or the opposite - being so fidgety or restless that you have been moving around a lot more than usual: not at all 9. Thoughts that you would be better off or of hurting yourself in some way: not at all Total score: 1 Depression Screening Interpretation: Negative Depression Screening Done: Yes 57709 - PHQ-9 Billing: Yes Source: Developed by Drs. Finn Leroy, Karen Humphrey, Angel Meeks and colleagues, with an educational modesto from [employer]. Thrive Questionnaire Date Thrive assessed: 06/14/24 I am a: Patient What is your living situation today?: I have a steady place to live Within the past 12 months, did the food you bought not last and you didn't have the money to get more?: Never true Within the past 12 months, did you worry whether your food would run out before you got money to buy more?: Never true Do you have trouble paying for medicines?: No Do you have trouble getting transportation to medical appointments?: No Do you have trouble paying your heating and electricity bill?: No Do you have trouble taking care of your child, family member or friend?: No Do you have trouble with day-to-day activities such as bathing, preparing meals, shopping, managing finances, etc.?: No Are you currently unemployed and looking for a job?: No Are you interested in more education?: No Please select the resources that you would like help with: Housing/Nursing Home Currently or been in a relationship where the following occur: No concerns reported THRIVE Score: 0 AUDIT C Alcohol Use Questionnaire (AUDIT-C) 1. How often do you have a drink containing alcohol?: 2-3 times a week 2. How many drinks containing alcohol do you have on a typical day when you are drinking?: 3 or 4 3. How often do you have six or more drinks on one occasion?: Monthly Total Score: 6 ALEXX-7 AMB Questionnaire ALEXX-7 Date ALEXX - 7 assessed: 06/14/24 Feeling nervous, anxious, or on edge: 1 = Several days Not being able to stop or control worryin = Several days Worrying too much about different things: 1 = Several days Trouble relaxin = Several days Being so restless that it is hard to sit still: 1 = Several days Becoming easily annoyed or irritable: 1 = Several days Feeling afraid as if something awful might happen: 0 = Not at all Total ALEXX-7 score (0-4 normal; 5-9 mild; 10-14 moderate; 15-21 severe): 6 Source: Developed by Drs. Finn Leroy, Karen Humphrey, Angel Meeks and colleagues, with an educational modesto from [employer]. ALEXX-7 Assessment Billing ALEXX-7 Assessment Tool: ALEXX-7 Assessment 74229 Review of Systems Const Denies fever(s), Denies headache(s) and Denies weakness Eyes Details: Up-to-date with his eye exam Denies change in vision ENT Denies dizziness, Denies headache(s), Denies nasal congestion and Denies nasal discharge Card Denies chest pain, Denies lightheadedness and Denies dyspnea Resp Denies chest congestion, Denies cough and Denies dyspnea GI Denies abdominal pain, Denies change in bowel habits and Denies heartburn Reports no additional complaints Musc Reports no additional complaints Skin/Breast Denies lesions and Denies rash Neuro Denies dizziness, Denies headache(s), Denies Sensory deficit (Neuro) and Denies weakness Psych Reports no additional complaints Endo Reports no additional complaints Anam/Lymph Reports no additional complaints Aller/Immun Reports no additional complaints Physical exam (Primary Care) Vital Signs: Last Vital Signs Pulse 87 06/14/24 15:44 BP 120/82 06/14/24 15:44 Pulse Ox 96 06/14/24 15:44 Oxygen Delivery Method Room Air 06/14/24 15:44 BMI result Body Mass Index 30.6 Tobacco/Smoking Status: Tobacco use Status Tobacco use date assessed 06/14/24 06/14/24 15:48 Patient Tobacco Use Status Former Tobacco user 06/14/24 15:48 e-Cigarette/Vaping Use Currently Using 06/14/24 15:48 PHQ-9: PHQ-9 Score PHQ-9: Total score 1 06/14/24 16:07 Depression Screening Interpretation: Negative Thrive Assessment: Date of Thrive Assessment Date Thrive assessed 06/14/24 06/14/24 15:49 Currently or been in a relationship where the following occur: No concerns reported Const General: cooperative, no acute distress and alert Orientation/consciousness: patient oriented x3 HENMT Face and sinus: Yes face symmetric Mouth: Normal oral and palatal mucosa present, oropharynx normal and moist mucous membranes Neck Neck: Yes full ROM and Yes no lymphadenopathy Thyroid: Thyroid normal Resp Effort & Inspection: normal respiratory effort and able to speak in complete sentences Auscultation: clear to auscultation bilaterally Cardio Rate: regular rate Rhythm: regular rhythm Heart sounds: S1 normal heart sound present and S2 normal heart sound present GI Inspection: Yes normal to inspection Palpation (GI): Soft to palpation Auscultation: normal bowel sounds Back/Spine/Pelvis Back: No back tenderness Skin General skin exam: no rashes or lesions noted Neuro General: patient oriented x3, gait normal, moves all extremities, no focal motor deficits and CN's II-XI intact bilaterally Cognition (Neuro): normal cognition Gait exam (Neuro): Normal gait present Motor exam (neuro): 5/5 motor strength present throughout Sensory Exam: No Sensory deficit (Neuro) Extrem General: Yes normal to inspection, Yes full ROM, Yes no pedal edema and Yes normal gait Results Reviewed Results Reviewed: Name: Ren Hawley Age/Sex: 38/M : 1985 Unit#: [id number] Attend Dr: Noemí Sanchez MD Re04/26/24 Status: DEP REF Location: [facility] Disch: SPEC : [id number] DYLLAN: 06/13/24-0830 STATUS: COMP REQ : [id number] RECD: 04/26/24-[address]: Noemí Sanchez MD COMP: 04/26/24-1111 ENTERED: 04/26/[address] [facility] DR: ORDERED: CMP Fast, MG, Lipid Panel, Vitamin D 25-OH, TSH Rflx Test Result Flag Reference Sodium 139 135-145 mmol/L Potassium 3.7 3.3-5.1 mmol/L CL 103 96-108 mmol/L CO2 27 22-29 mmol/L Gap 13 12-20 BUN 18 H 9-16 mg/dL Creat 0.86 0.5-1.4 mg/dL EGFR > 60 NOTE: For -Uz[place] individuals, multiply the result by 1.210. Chronic Kidney Disease: Estimated GFR < 60 mL/min/1.73m2 Severe Kidney Disease: Estimated GFR < 15 mL/min/1.73m2 FBS 100 H 60-99 mg/dL A fasting glucose from 100-125 mg/dl is considered impaired (pre-diabetes). CA 9.9 8.4-10.2 mg/dL Magnesium 2.1 1.6-2.6 mg/dL Total Bili 0.7 0.0-1.0 mg/dL AST (GOT) 32 5-37 U/L ALT (GPT) 42 H 0-40 U/L Protein, Total 7.5 6.5-8.0 g/dL Alb 4.5 3.5-5.0 g/dL Triglyceride 265 H <150 mg/dL Desirable Triglyceride: less than 150 mg/dL Borderline High Triglyceride 150-199 mg/dL High Triglyceride: 200-499 mg/dL Very High Triglyceride: greater than or equal to 5OO mg/dL Cholesterol 224 H <200 mg/dL Desirable Cholesterol: less than 200 mg/dL Borderline High Cholesterol: 200-239 mg/dL High Cholesterol: greater than 239 mg/dL LDL Calculated 123 H <100 mg/dL Desirable LDL: less than 100 mg/dL Near Optimal/Above Optimal LDL: 110-129 mg/dL Borderline High LDL: 130-159 mg/dL High LDL: 160-189 mg/dL Very High LDL: greater than or equal to 190 mg/dL HDL 48 >40 mg/dL Desirable HDL: greater than 40 mg/dL Note: This HDL assay may give artificially low results in patients with liver disease. Alk Phos 60 39-117 U/L Vit D 25-OH Tot 46.0 >30 ng/mL Health Based Reference Values* < 20 ng/mL Deficient 20-30 ng/mL Insufficient > 30 ng/mL Sufficient *Minh NUÑEZ. N Engl J Med. 2007;357:266-280 Care must be taken in interpreting Vitamin D results from different laboratories and methodologies. Published data demonstrated that results from patients undergoing hemodialysis may show a negative bias when tested with various automated 25-OH vitamin D assays when compared to LC-MS/MS. When testing samples from patients whose predominant form of Vitamin D is Vitamin D2, such as patients receiving Vitamin D2 supplementation, results that are subtherapeutic should be confirmed with another method such as LC-MS/MS. TSH 1.65 0.32-4.0 uIU/mL Assessment and Plan Assessment & Plan (1) Essential hypertension: Code(s): I10 - Essential (primary) hypertension Plan: Continue metoprolol, losartan HCTZ (2) Hypertriglyceridemia: Code(s): E78.1 - Pure hyperglyceridemia Plan: Patient advised to avoid eating a lot of processed foods, sweets sugar drinks, pastries, donuts and drinking alcohol. Continue with regular exercise, continue rosuvastatin 5 mg daily in addition to eating a healthy diet and getting regular exercise. repeat lipids ordered (3) Excessive vitamin B6 intake: Code(s): E67.8 - Other specified hyperalimentation Plan: Advised to stop drinking Monster energy drinks will repeat another vitamin B6 level (4) Impaired fasting glucose: Code(s): R73.01 - Impaired fasting glucose Plan: Your previous fasting blood sugars were elevated at or above 100 mg/dL. Impaired glucose metabolism increases the risk for developing diabetes mellitus type 2, as well as heart attack and stroke later on. Lifestyle changes that promotes weight loss, healthy eating habits, and regular exercise are important, and can prevent the progression to diabetes. Repeat hemoglobin A1c and fasting blood sugar ordered Orders: Orders Hemoglobin A1c 06/14/24 E67.8 - Other specified hyperalimentation, E78.1 - Pure hyperglyceridemia, I10 - Essential (primary) hypertension, R73.01 - Impaired fasting glucose Alanine Aminotransferase 06/14/24 E67.8 - Other specified hyperalimentation, E78.1 - Pure hyperglyceridemia, I10 - Essential (primary) hypertension, R73.01 - Impaired fasting glucose Aspartate Amino Transferase 06/14/24 E67.8 - Other specified hyperalimentation, E78.1 - Pure hyperglyceridemia, I10 - Essential (primary) hypertension, R73.01 - Impaired fasting glucose Lipid Panel 06/14/24 E67.8 - Other specified hyperalimentation, E78.1 - Pure hyperglyceridemia, I10 - Essential (primary) hypertension, R73.01 - Impaired fasting glucose Basic Metabolic Panel Fasting 06/14/24 E67.8 - Other specified hyperalimentation, E78.1 - Pure hyperglyceridemia, I10 - Essential (primary) hypertension, R73.01 - Impaired fasting glucose Vitamin B6 06/14/24 E67.8 - Other specified hyperalimentation, E78.1 - Pure hyperglyceridemia, I10 - Essential (primary) hypertension, R73.01 - Impaired fasting glucose Medications: Refilled hydrochlorothiazide 12.5 mg PO QAM 90 caps 3RF Coding Level of Care Code Est Pt Level 4 (35774) Diagnoses Essential hypertension I10 Hypertriglyceridemia E78.1 Excessive vitamin B6 intake E67.8 Impaired fasting glucose R73.01 Additional Codes ALEXX-7 Assessment Billing - ALEXX-7 Assessment Tool: ALEXX-7 Assessment 58037 ([id number])
== END 2024-06-14 16:12 | disposition home or self-care (01) ==
PROVIDERS: PCP Internal Medicine; Visit Provider Internal Medicine
DX: I10 Essential (primary) hypertension (principal); E78.1 Pure hyperglyceridemia; E67.8 Other specified hyperalimentation; R73.01 Impaired fasting glucose
CPT/HCPCS: 99214

== ENCOUNTER 2024-10-09 07:13 | Outpatient (REF) | payer OTHER, SELFPAY ==
[2024-10-09 10:31] LABS: Alanine Aminotransferase 60 U/L (0-40); Anion Gap 11 (12-20); Aspartate Amino Transferase 41 U/L (5-37); Blood Urea Nitrogen 13 mg/dL (9-16); Calcium 9.4 mg/dL (8.4-10.2); Carbon Dioxide 27 mmol/L (22-29); Chloride 104 mmol/L (96-108); Cholesterol 202 mg/dL (<200); Estimated Average Glucose 105 mg/dL; Estimated Glomerular Filt Rate > 60; Glucose Fasting 107 mg/dL (60-99); HDL Cholesterol 51 mg/dL (>40); Hemoglobin A1C 123.9862 umol/L; Hemoglobin A1c % 5.3 % (<6.0); LDL Cholesterol Calculated 130 mg/dL (<100); Potassium 3.4 mmol/L (3.3-5.1); Sodium 139 mmol/L (135-145); Total Hemoglobin (HGBA1C) 3615.0993 umol/L; Triglycerides 108 mg/dL (<150)
[2024-10-14 16:32] LABS: Vitamin B6 22.8 ng/mL (2.1-21.7)
== END 2024-10-09 07:14 | disposition home or self-care (01) ==
LOC: HO.HMGCLDS 07:13
PROVIDERS: PCP Internal Medicine; Visit Provider Internal Medicine
DX: I10 Essential (primary) hypertension (principal); E78.1 Pure hyperglyceridemia; R73.01 Impaired fasting glucose; E67.8 Other specified hyperalimentation
CPT/HCPCS: 36415; 80048; 80061; 83036; 84207; 84450; 84460

== ENCOUNTER 2024-11-16 10:14 | Outpatient (AMB) | payer OTHER, SELFPAY ==
--- NOTE | 2024-11-16 10:13 | MHC.PC.OV ---
Intake Visit Reasons: discuss lab results I phone [phone] Allergies No Known Allergies Allergy (Verified 11/16/24 10:22) Medication List - Last Reconciled 11/16/24 by Noemí Sanchez MD hydrochlorothiazide 12.5 mg PO QAM losartan 25 mg PO DAILY metoprolol succinate ER 50 mg PO DAILY rosuvastatin 5 mg PO DAILY sildenafil (Viagra) 100 mg PO DAILY PRN Tobacco use date assessed: 11/16/24 Dental Screening Dental Screen Date: 11/16/24 Did you have a dental visit in the last 12 months?: No Did you have a dental problem in the last 6 months where you did not have access to dental care?: No Was dental information given to patient?: Patient has dentist HPI discuss lab results I phone [phone] HPI Details 39-year-old male with hypertriglyceridemia, and hypertension, here today for follow-up. He has been taking his medicines as directed, blood pressure has been stable and controlled on present treatment. Recent fasting lipids showed improvement in his triglyceride level, LDL cholesterol high normal. Liver enzymes however has been creeping up and vitamin B6 which was elevated on last visit is about the same. He has been drinking alcoholic beverage but states that he has cut back since , and has only had 1 red bull this month. Has been feeling well, with no complaints of any abdominal pain, no jaundice, no nausea or vomiting, or changes in bowel habits [facility] Medical History (Updated 11/16/24 @ 10:34 by Noemí Sanchez MD) Elevated transaminase level Excessive vitamin B6 intake Impaired fasting glucose Alcohol use disorder Tremor of left hand Numbness and tingling in both hands Hypertriglyceridemia Anxiety and depression Essential hypertension Family History Father Substance use disorder Mother Syncope Sister No problems noted. Son No problems noted. Daughter No problems noted. Social History Housing: House Alcohol intake: current Patient Tobacco Use Status: Former Tobacco user e-Cigarette/Vaping Use: Currently Using Second Hand Smoke Exposure: Yes service: No Current occupational status: employed Current occupation: [employer] Current occupational exposures/hazards: Yes Cognitive needs: No Hearing needs: No Vision needs: Yes Questionnaire PHQ-9 Over the last 2 weeks, how often have you been bothered by any of the following problems? 1. Little interest or pleasure in doing things: not at all 2. Feeling down, depressed, or hopeless: not at all 3. Trouble falling or staying asleep, or sleeping too much: not at all 4. Feeling tired or having little energy: not at all 5. Poor appetite or overeating: not at all 6. Feeling bad about yourself - or that you are a failure or have let yourself or your family down: not at all 7. Trouble concentrating on things, such as reading the newspaper or watching television: not at all 8. Moving or speaking so slowly that other people could have noticed. Or the opposite - being so fidgety or restless that you have been moving around a lot more than usual: not at all 9. Thoughts that you would be better off or of hurting yourself in some way: not at all Total score: 0 Depression Screening Interpretation: Negative Depression Screening Done: Yes 75749 - PHQ-9 Billing: Yes Source: Developed by Drs. Finn Leroy, Karen Humphrey, Angel Meeks and colleagues, with an educational modesto from [employer]. Thrive Questionnaire Date Thrive assessed: 11/16/24 I am a: Patient What is your living situation today?: I have a steady place to live Within the past 12 months, did the food you bought not last and you didn't have the money to get more?: Never true Within the past 12 months, did you worry whether your food would run out before you got money to buy more?: Never true Do you have trouble paying for medicines?: No Do you have trouble getting transportation to medical appointments?: No Do you have trouble paying your heating and electricity bill?: No Do you have trouble taking care of your child, family member or friend?: No Do you have trouble with day-to-day activities such as bathing, preparing meals, shopping, managing finances, etc.?: No Are you currently unemployed and looking for a job?: No Are you interested in more education?: No THRIVE Score: 0 AUDIT C Alcohol Use Questionnaire (AUDIT-C) 1. How often do you have a drink containing alcohol?: 2-4 times a month Total Score: 2 ALEXX-7 AMB Questionnaire ALEXX-7 Date ALEXX - 7 assessed: 11/16/24 Feeling nervous, anxious, or on edge: 0 = Not at all Not being able to stop or control worryin = Not at all Worrying too much about different things: 0 = Not at all Trouble relaxin = Not at all Being so restless that it is hard to sit still: 0 = Not at all Becoming easily annoyed or irritable: 0 = Not at all Feeling afraid as if something awful might happen: 0 = Not at all Total ALEXX-7 score (0-4 normal; 5-9 mild; 10-14 moderate; 15-21 severe): 0 Source: Developed by Drs. Finn Leroy, Karen Humphrey, Angel Meeks and colleagues, with an educational modesto from [employer]. ALEXX-7 Assessment Billing ALEXX-7 Assessment Tool: ALEXX-7 Assessment 71549 Review of Systems Const Denies fever(s), Denies headache(s) and Denies weakness Eyes Denies change in vision ENT Denies dizziness, Denies headache(s), Denies nasal congestion and Denies nasal discharge Card Denies chest pain, Denies lightheadedness and Denies dyspnea Resp Denies chest congestion, Denies cough and Denies dyspnea GI Reports as per HPI Reports no additional complaints Musc Reports no additional complaints Skin/Breast Denies lesions and Denies rash Neuro Denies dizziness, Denies headache(s), Denies Sensory deficit (Neuro) and Denies weakness Psych Reports no additional complaints Endo Reports no additional complaints Anam/Lymph Reports no additional complaints Aller/Immun Reports no additional complaints Physical exam (Primary Care) Tobacco/Smoking Status: Tobacco use Status Tobacco use date assessed 11/16/24 11/16/24 10:14 Patient Tobacco Use Status Former Tobacco user 11/16/24 10:14 e-Cigarette/Vaping Use Currently Using 11/16/24 10:14 PHQ-9: PHQ-9 Score PHQ-9: Total score 0 11/16/24 10:19 Depression Screening Interpretation: Negative Thrive Assessment: Date of Thrive Assessment Date Thrive assessed 11/16/24 11/16/24 10:19 Neuro Sensory Exam: No Sensory deficit (Neuro) Telehealth Telehealth Telehealth Platform: [employer] Location of provider rendering services: practice address Location of patient: address on file Patient Identification confirmed using: Name, : Yes Telehealth method: video Patient verbally consented to treatment: Yes Patient verbally consented to billing insurance company: Yes Patient informed of any privacy concerns related to visit: Yes Minutes spent on Phone/Video with Pt.: 15 Results Reviewed Results Reviewed: Laboratory Tests 10/09/24 07:17 Estimat Average Glucose 105 Hemoglobin A1c % 5.3 Name: Ren Hawley Age/Sex: 39/M : 1985 Unit#: [id number] Attend Dr: Noemí Sanchez MD Re10/09/24 Status: DEP REF Location: [facility] Disch: SPEC : [id number] DYLLAN: 10/09/24 STATUS: COMP REQ : [id number] RECD: 10/09/[address]: Noemí Sanchez MD COMP: 10/09/24 ENTERED: 10/09/[address]: ORDERED: Met Prof Fast, AST, ALT, Lipid Panel Test Result Flag Reference Sodium 139 135-145 mmol/L Potassium 3.4 3.3-5.1 mmol/L CL 104 96-108 mmol/L CO2 27 22-29 mmol/L Gap 11 L 12-20 BUN 13 9-16 mg/dL Creat 0.81 0.5-1.4 mg/dL eGFR > 60 Chronic Kidney Disease: Estimated GFR < 60 mL/min/1.73m2 Severe Kidney Disease: Estimated GFR < 15 mL/min/1.73m2 FBS 107 H 60-99 mg/dL A fasting glucose from 100-125 mg/dl is considered impaired (pre-diabetes). CA 9.4 8.4-10.2 mg/dL AST (GOT) 41 H 5-37 U/L ALT (GPT) 60 H 0-40 U/L Triglyceride 108 <150 mg/dL Desirable Triglyceride: less than 150 mg/dL Borderline High Triglyceride 150-199 mg/dL High Triglyceride: 200-499 mg/dL Very High Triglyceride: greater than or equal to 5OO mg/dL Cholesterol 202 H <200 mg/dL Desirable Cholesterol: less than 200 mg/dL Borderline High Cholesterol: 200-239 mg/dL High Cholesterol: greater than 239 mg/dL LDL Calculated 130 H <100 mg/dL Desirable LDL: less than 100 mg/dL Near Optimal/Above Optimal LDL: 110-129 mg/dL Borderline High LDL: 130-159 mg/dL High LDL: 160-189 mg/dL Very High LDL: greater than or equal to 190 mg/dL HDL 51 >40 mg/dL Desirable HDL: greater than 40 mg/dL Note: This HDL assay may give artificially low results in patients with liver disease. Coding Level of Care Code Tele Est Pt Level 4 (21908) Complex EM visit Add On G2211 Diagnoses Hypertriglyceridemia E78.1 Excessive vitamin B6 intake E67.8 Essential hypertension I10 Elevated transaminase level R74.01 Additional Codes PHQ-9 - 36742 - PHQ-9 Billing: Yes ([id number]) ALEXX-7 Assessment Billing - ALEXX-7 Assessment Tool: ALEXX-7 Assessment 32913 ([id number]) Assessment & Plan Assessment & Plan (1) Hypertriglyceridemia: Code(s): E78.1 - Pure hyperglyceridemia Category: Medical Plan: Reviewed recent fasting lipid results with patient from 10/03/2024 which showed marked improvement in his triglyceride levels, now within normal limits, LDL cholesterol is a little higher at 130 mg/dL. Continue with rosuvastatin 5 mg once a day. And combined this with adherence to a low-cholesterol diet and getting regular exercise. Patient has been advised not to drink alcohol when taking rosuvastatin (2) Excessive vitamin B6 intake: Code(s): E67.8 - Other specified hyperalimentation Category: Medical Plan: Continue avoidance of energy drinks , will recheck another B6 level on next appointment in 01/03/2025 (3) Essential hypertension: Code(s): I10 - Essential (primary) hypertension Category: Medical Plan: Continue with hydrochlorothiazide and losartan as well as metoprolol succinate same dose (4) Elevated transaminase level: Code(s): R74.01 - Elevation of levels of liver transaminase levels Category: Medical Plan: Patient cautioned about elevations in his liver enzymes, advised to stop alcohol intake and stop drinking energy drinks. Will recheck levels again in 01/03/2025 Orders: Orders Lipid Panel 12/29/24 E67.8 - Other specified hyperalimentation, E78.1 - Pure hyperglyceridemia, I10 - Essential (primary) hypertension Comprehensive [place]. Panel Fast 12/29/24 E67.8 - Other specified hyperalimentation, E78.1 - Pure hyperglyceridemia, I10 - Essential (primary) hypertension Vitamin B6 12/29/24 E67.8 - Other specified hyperalimentation, E78.1 - Pure hyperglyceridemia, I10 - Essential (primary) hypertension
== END 2024-11-16 10:36 | disposition home or self-care (01) ==
LOC: HO.HMCC 10:14
PROVIDERS: PCP Internal Medicine; Visit Provider Internal Medicine
DX: E78.1 Pure hyperglyceridemia (principal); E67.8 Other specified hyperalimentation; I10 Essential (primary) hypertension; R74.01 Elevation of levels of liver transaminase levels

== ENCOUNTER → 2024-11-16 10:14 | Outpatient (BNVA) | payer OTHER, SELFPAY | PROVIDERS: PCP Internal Medicine; Visit Provider Internal Medicine | DX: E78.1 Pure hyperglyceridemia (principal); E67.8 Other specified hyperalimentation; I10 Essential (primary) hypertension; R74.01 Elevation of levels of liver transaminase levels; Z79.899 Other long term (current) drug therapy | CPT/HCPCS: 96127 ==

== ENCOUNTER 2025-01-02 07:41 | Outpatient (REF) | payer OTHER, SELFPAY ==
[2025-01-02 10:42] LABS: Alanine Aminotransferase 70 U/L (0-40); Albumin Level 4.5 g/dL (3.5-5.0); Alkaline Phosphatase 62 U/L (39-117); Anion Gap 13 (12-20); Aspartate Amino Transferase 39 U/L (5-37); Bilirubin Total 0.6 mg/dL (0.0-1.0); Blood Urea Nitrogen 20 mg/dL (9-16); Calcium 9.8 mg/dL (8.4-10.2); Carbon Dioxide 27 mmol/L (22-29); Chloride 105 mmol/L (96-108); Cholesterol 227 mg/dL (<200); Estimated Glomerular Filt Rate > 60; Glucose Fasting 97 mg/dL (60-99); HDL Cholesterol 48 mg/dL (>40); LDL Cholesterol Calculated 145 mg/dL (<100); Potassium 3.8 mmol/L (3.3-5.1); Sodium 141 mmol/L (135-145); Total Protein 7.9 g/dL (6.5-8.0); Triglycerides 172 mg/dL (<150)
== END 2025-01-02 07:42 | disposition home or self-care (01) ==
LOC: HO.HMGCLDS 07:41
PROVIDERS: PCP Internal Medicine; Visit Provider Internal Medicine
DX: E67.8 Other specified hyperalimentation (principal); E78.1 Pure hyperglyceridemia; I10 Essential (primary) hypertension
CPT/HCPCS: 36415; 80053; 80061

== ENCOUNTER 2025-01-03 09:18 | Outpatient (AMB) | payer OTHER, SELFPAY ==
[2025-01-03 09:21] VITALS: BP 138/82; PULSE 82; RESP 16; TEMP 36.4; O2SAT 97; BMI 32.0
--- NOTE | 2025-01-03 09:21 | A.OFFPC_ITS ---
Vital Signs 01/03/25 09:21 Height 6 ft Weight 236 lb BMI 32.0 BP 138/82 Blood Pressure Location Lt brachial Position Sitting Respiration 16 Pulse 82 Pulse Source Pulse Oximeter Temp 97.6 F Temp Source Oral Pulse Oximetry (%) 97 Oxygen Delivery Method Room Air Intake Visit Reasons: Annual PE Intake Note: Pt is here today for his PE Allergies No Known Allergies Allergy (Verified 01/03/25 09:34) Medication List - Last Reconciled 01/03/25 by Noemí Sanchez MD hydrochlorothiazide 12.5 mg PO QAM losartan 25 mg PO DAILY metoprolol succinate ER 50 mg PO DAILY rosuvastatin 5 mg PO DAILY sildenafil (Viagra) 100 mg PO DAILY PRN Tobacco use date assessed: 01/03/25 Dental Screening Dental Screen Date: 01/03/25 Did you have a dental visit in the last 12 months?: No Did you have a dental problem in the last 6 months where you did not have access to dental care?: No Was dental information given to patient?: Patient has dentist HPI Annual PE HPI Details 39-year-old male with past medical histo ry significant for hyperlipidemia, hypertension impaired fasting glucose and alcohol use disorder, here today for physical exam. Patient states that he has cut back on his alcohol intake , but still drinks at least an average of 3 or 4 drinks 2 to 3 times a week, consisting of beer and rum. He has quit smoking but still continues to vape. Blood pressure still not at goal of less than 130/80. Currently taking hydrochlorothiazide 12.5 mg in the morning losartan 25 mg daily as well as metoprolol 50 mg once a day. Latest fasting labs showed higher triglycerides and LDL cholesterol as compared to last check in liver enzymes remains elevated. Fasting blood sugar, electrolytes and renal function are within normal range. Has history of anxiety depression currently not on any medications and patient states he is able to control it through behavioral techniques. Does not want to start any medications at present time and does not want to see a therapist [facility] Medical History (Updated 01/03/25 @ 09:57 by Noemí Sanchez MD) Dyslipidemia Elevated transaminase level Excessive vitamin B6 intake Impaired fasting glucose Alcohol use disorder Numbness and tingling in both hands Anxiety and depression Essential hypertension Family History Father Substance use disorder Mother Syncope Sister No problems noted. Son No problems noted. Daughter No problems noted. Social History Housing: House Alcohol intake: current Patient Tobacco Use Status: Former Tobacco user e-Cigarette/Vaping Use: Currently Using Second Hand Smoke Exposure: Yes service: No Current occupational status: employed Current occupation: Slacker Current occupational exposures/hazards: Yes Cognitive needs: No Hearing needs: No Vision needs: Yes Questionnaire PHQ-9 Over the last 2 weeks, how often have you been bothered by any of the following problems? 1. Little interest or pleasure in doing things: not at all 2. Feeling down, depressed, or hopeless: not at all 3. Trouble falling or staying asleep, or sleeping too much: not at all 4. Feeling tired or having little energy: not at all 5. Poor appetite or overeating: not at all 6. Feeling bad about yourself - or that you are a failure or have let yourself or your family down: not at all 7. Trouble concentrating on things, such as reading the newspaper or watching television: not at all 8. Moving or speaking so slowly that other people could have noticed. Or the opposite - being so fidgety or restless that you have been moving around a lot more than usual: not at all 9. Thoughts that you would be better off or of hurting yourself in some way: not at all Total score: 0 Depression Screening Interpretation: Negative Depression Screening Done: Yes 51832 - PHQ-9 Billing: Yes Source: Developed by Drs. Finn Leroy, Karen Humphrey, Angel Meeks and colleagues, with an educational modesto from [employer]. Thrive Questionnaire Date Thrive assessed: 11/16/24 I am a: Patient What is your living situation today?: I have a steady place to live Within the past 12 months, did the food you bought not last and you didn't have the money to get more?: Never true Within the past 12 months, did you worry whether your food would run out before you got money to buy more?: Never true Do you have trouble paying for medicines?: No Do you have trouble getting transportation to medical appointments?: No Do you have trouble paying your heating and electricity bill?: No Do you have trouble taking care of your child, family member or friend?: No Do you have trouble with day-to-day activities such as bathing, preparing meals, shopping, managing finances, etc.?: No Are you currently unemployed and looking for a job?: No Are you interested in more education?: No Please select the resources that you would like help with: None Currently or been in a relationship where the following occur: No concerns reported THRIVE Score: 0 AUDIT C Alcohol Use Questionnaire (AUDIT-C) 1. How often do you have a drink containing alcohol?: 2-3 times a week 2. How many drinks containing alcohol do you have on a typical day when you are drinking?: 3 or 4 3. How often do you have six or more drinks on one occasion?: Less than monthly Total Score: 5 ALEXX-7 AMB Questionnaire ALEXX-7 Date ALEXX - 7 assessed: 11/16/24 Feeling nervous, anxious, or on edge: 1 = Several days Not being able to stop or control worryin = Several days Worrying too much about different things: 1 = Several days Trouble relaxin = Several days Being so restless that it is hard to sit still: 0 = Not at all Becoming easily annoyed or irritable: 1 = Several days Feeling afraid as if something awful might happen: 0 = Not at all Total ALEXX-7 score (0-4 normal; 5-9 mild; 10-14 moderate; 15-21 severe): 5 Source: Developed by Drs. Finn Leroy, Karen Humphrey, Angel Meeks and colleagues, with an educational modesto from [employer]. ALEXX-7 Assessment Billing ALEXX-7 Assessment Tool: ALEXX-7 Assessment 52300 Review of Systems Const Denies fever(s), Denies headache(s) and Denies weakness Eyes Denies change in vision ENT Denies dizziness, Denies headache(s), Denies nasal congestion and Denies nasal discharge Card Denies chest pain, Denies lightheadedness and Denies dyspnea Resp Denies chest congestion, Denies cough and Denies dyspnea GI Reports no additional complaints Reports no additional complaints Musc Reports no additional complaints Skin/Breast Denies lesions and Denies rash Neuro Denies dizziness, Denies headache(s), Denies Sensory deficit (Neuro) and Denies weakness Psych Reports no additional complaints Endo Reports no additional complaints Anam/Lymph Reports no additional complaints Aller/Immun Reports no additional complaints Physical exam (Primary Care) Vital Signs: Last Vital Signs Temp 97.6 F 01/03/25 09:21 Pulse 82 01/03/25 09:21 Resp 16 01/03/25 09:21 BP 138/82 01/03/25 09:21 Pulse Ox 97 01/03/25 09:21 Oxygen Delivery Method Room Air 01/03/25 09:21 BMI result Body Mass Index 32.0 Tobacco/Smoking Status: Tobacco use Status Tobacco use date assessed 01/03/25 01/03/25 09:23 Patient Tobacco Use Status Former Tobacco user 01/03/25 09:21 e-Cigarette/Vaping Use Currently Using 01/03/25 09:21 PHQ-9: PHQ-9 Score PHQ-9: Total score 0 01/03/25 09:35 Depression Screening Interpretation: Negative Thrive Assessment: Date of Thrive Assessment Date Thrive assessed 11/16/24 01/03/25 09:21 Currently or been in a relationship where the following occur: No concerns reported Const General: cooperative, no acute distress and alert Orientation/consciousness: patient oriented x3 HENMT Face and sinus: Yes face symmetric Mouth: Normal oral and palatal mucosa present, oropharynx normal and moist mucous membranes Neck Neck: Yes full ROM and Yes no lymphadenopathy Thyroid: Thyroid normal Resp Effort & Inspection: normal respiratory effort and able to speak in complete sentences Auscultation: clear to auscultation bilaterally Cardio Rate: regular rate Rhythm: regular rhythm Heart sounds: S1 normal heart sound present and S2 normal heart sound present GI Inspection: Yes normal to inspection Palpation (GI): Soft to palpation Auscultation: normal bowel sounds General: Yes no CVA tenderness Male General Exam: Yes normal external exam Back/Spine/Pelvis Back: no CVA tenderness and No back tenderness Skin General skin exam: no rashes or lesions noted Neuro General: patient oriented x3, gait normal, moves all extremities, no focal motor deficits and CN's II-XI intact bilaterally Cognition (Neuro): normal cognition Gait exam (Neuro): Normal gait present Motor exam (neuro): 5/5 motor strength present throughout Sensory Exam: No Sensory deficit (Neuro) Extrem General: Yes normal to inspection, Yes full ROM, Yes no pedal edema and Yes normal gait Psych Appearance: grossly normal and well kempt Mental Status: mental status grossly normal Speech and movement: Normal speech and movement present Affect: normal affect Results Reviewed Results Reviewed: Name: Ren Hawley Age/Sex: 39/M : 1985 Unit#: [id number] Attend Dr: Noemí Sanchez MD Re01/02/25 Status: DEP REF [facility] [place] Disch: SPEC : [id number] DYLLAN: 01/02/25 STATUS: COMP REQ : [id number] RECD: 01/02/[address]: Noemí Sanchez MD COMP: 01/02/25 ENTERED: 01/02/[address] [facility] [address]: ORDERED: CMP Fast, Lipid Panel Test Result Flag Reference Sodium 141 135-145 mmol/L Potassium 3.8 3.3-5.1 mmol/L CL 105 96-108 mmol/L CO2 27 22-29 mmol/L Gap 13 12-20 BUN 20 H 9-16 mg/dL Creat 0.86 0.5-1.4 mg/dL eGFR > 60 Chronic Kidney Disease: Estimated GFR < 60 mL/min/1.73m2 Severe Kidney Disease: Estimated GFR < 15 mL/min/1.73m2 FBS 97 60-99 mg/dL CA 9.8 8.4-10.2 mg/dL Total Bili 0.6 0.0-1.0 mg/dL AST (GOT) 39 H 5-37 U/L ALT (GPT) 70 H 0-40 U/L Protein, Total 7.9 6.5-8.0 g/dL Alb 4.5 3.5-5.0 g/dL Triglyceride 172 H <150 mg/dL Desirable Triglyceride: less than 150 mg/dL Borderline High Triglyceride 150-199 mg/dL High Triglyceride: 200-499 mg/dL Very High Triglyceride: greater than or equal to 5OO mg/dL Cholesterol 227 H <200 mg/dL Desirable Cholesterol: less than 200 mg/dL Borderline High Cholesterol: 200-239 mg/dL High Cholesterol: greater than 239 mg/dL LDL Calculated 145 H <100 mg/dL Desirable LDL: less than 100 mg/dL Near Optimal/Above Optimal LDL: 110-129 mg/dL Borderline High LDL: 130-159 mg/dL High LDL: 160-189 mg/dL Very High LDL: greater than or equal to 190 mg/dL HDL 48 >40 mg/dL Desirable HDL: greater than 40 mg/dL Note: This HDL assay may give artificially low results in patients with liver disease. Alk Phos 62 39-117 U/L Coding Level of Care Code Est Pt Level 4 (46822) Complex EM visit Add On G2211 Diagnoses Essential hypertension I10 Alcohol use disorder F10.90 Excessive vitamin B6 intake E67.8 Elevated transaminase level R74.01 Dyslipidemia E78.5 Additional Codes PHQ-9 - 54462 - PHQ-9 Billing: Yes ([id number]) ALEXX-7 Assessment Billing - ALEXX-7 Assessment Tool: ALEXX-7 Assessment 89069 ([id number]) Assessment & Plan Assessment & Plan (1) Essential hypertension: Code(s): I10 - Essential (primary) hypertension Category: Medical Plan: Blood pressure not at goal of less than 130/80. Will continue on current medication, Reinforced importance of following a low sodium diet, getting regular exercise, and lowering stress levels. Schedule follow-up visit in 3 months after fasting labs done (2) Alcohol use disorder: Code(s): F10.90 - Alcohol use, unspecified, uncomplicated Category: Medical Plan: Reinforced importance of cutting back on alcohol intake, emphasized elevated liver enzymes on this visit. patient does not want to go attend AA or start any medication to help control alcohol cravings . He states that he can cut back on his own. Came back for follow-up in 3 months (3) Excessive vitamin B6 intake: Code(s): E67.8 - Other specified hyperalimentation Category: Medical Plan: Advised to stop drinking energy drinks such as monster or red bull. Repeat vitamin B6 level in 3 months (4) Elevated transaminase level: Code(s): R74.01 - Elevation of levels of liver transaminase levels Category: Medical Plan: Stressed importance of abstaining from alcohol intake. Recheck levels again in 3 months (5) Dyslipidemia: Code(s): E78.5 - Hyperlipidemia, unspecified Category: Medical Plan: Reviewed recent fasting lipid profile with patient with high triglycerides and LDL cholesterol as compared to last check. Continue rosuvastatin 5 mg daily. , stressed adherence to low-cholesterol diet and regular exercise, at least 30 minutes 3 to 4 times a week. Advised avoiding alcohol intake when taking rosuvastatin. Advised patient to make healthy food choices, eat more fruits, vegetables, whole grains, wild caught fish and low-fat dairy. Limit amount of meat and fried or fatty food products, as well as processed foods and fast foods. Follow-up scheduled with repeat fasting lipid panel in 3 months. Orders: Orders Liver Panel 03/14/25 E67.8 - Other specified hyperalimentation, E78.5 - Hyperlipidemia, unspecified, F10.90 - Alcohol use, unspecified, uncomplicated, I10 - Essential (primary) hypertension, R74.01 - Elevation of levels of liver transaminase levels Basic Metabolic Panel Fasting 03/14/25 E67.8 - Other specified hyperalimentation, E78.5 - Hyperlipidemia, unspecified, F10.90 - Alcohol use, unspecified, uncomplicated, I10 - Essential (primary) hypertension, R74.01 - Elevation of levels of liver transaminase levels Testosterone, Free/Total 03/14/25 E67.8 - Other specified hyperalimentation, E78.5 - Hyperlipidemia, unspecified, F10.90 - Alcohol use, unspecified, uncomplicated, I10 - Essential (primary) hypertension, R74.01 - Elevation of levels of liver transaminase levels Vitamin B6 03/14/25 E67.8 - Other specified hyperalimentation, E78.5 - Hyperlipidemia, unspecified, F10.90 - Alcohol use, unspecified, uncomplicated, I10 - Essential (primary) hypertension, R74.01 - Elevation of levels of liver transaminase levels Lipid Panel 03/14/25 E67.8 - Other specified hyperalimentation, E78.5 - Hyperlipidemia, unspecified, F10.90 - Alcohol use, unspecified, uncomplicated, I10 - Essential (primary) hypertension, R74.01 - Elevation of levels of liver transaminase levels
== END 2025-01-03 09:46 | disposition home or self-care (01) ==
PROVIDERS: PCP Internal Medicine; Visit Provider Internal Medicine
DX: I10 Essential (primary) hypertension (principal); F10.90 Alcohol use, unspecified, uncomplicated; E67.8 Other specified hyperalimentation; R74.01 Elevation of levels of liver transaminase levels; E78.5 Hyperlipidemia, unspecified

== ENCOUNTER → 2025-01-03 09:18 | Outpatient (BNVA) | payer OTHER, SELFPAY | PROVIDERS: PCP Internal Medicine; Visit Provider Internal Medicine | DX: I10 Essential (primary) hypertension (principal); E67.8 Other specified hyperalimentation; R74.01 Elevation of levels of liver transaminase levels; E78.5 Hyperlipidemia, unspecified; F10.90 Alcohol use, unspecified, uncomplicated; Z79.899 Other long term (current) drug therapy | CPT/HCPCS: 96127 ==

== ENCOUNTER 2025-03-26 08:40 | Outpatient (REF) | payer OTHER, SELFPAY ==
[2025-03-26 11:21] LABS: Alanine Aminotransferase 56 U/L (0-40); Albumin Level 4.4 g/dL (3.5-5.0); Anion Gap 12 (12-20); Aspartate Amino Transferase 37 U/L (5-37); Bilirubin Direct 0.2 mg/dL (0.0-0.5); Bilirubin Total 0.7 mg/dL (0.0-1.0); Blood Urea Nitrogen 16 mg/dL (9-16); Calcium 9.5 mg/dL (8.4-10.2); Carbon Dioxide 26 mmol/L (22-29); Chloride 107 mmol/L (96-108); Cholesterol 223 mg/dL (<200); Estimated Glomerular Filt Rate > 60; Glucose Fasting 102 mg/dL (60-99); HDL Cholesterol 45 mg/dL (>40); LDL Cholesterol Calculated 126 mg/dL (<100); Sodium 141 mmol/L (135-145); Total Protein 7.3 g/dL (6.5-8.0); Triglycerides 261 mg/dL (<150)
[2025-03-26 12:49] LABS: Alkaline Phosphatase 64 U/L (39-117)
[2025-03-31 20:13] LABS: Vitamin B6 24.1 ng/mL (2.1-21.7)
[2025-03-31 21:59] LABS: Testosterone, Free 55.3 pg/mL (35.0-155.0); Testosterone, Total 327 ng/dL (250-1100)
== END 2025-03-26 08:41 | disposition home or self-care (01) ==
LOC: HO.HMGCLDS 08:40
PROVIDERS: PCP Internal Medicine; Visit Provider Internal Medicine
DX: E67.8 Other specified hyperalimentation (principal); I10 Essential (primary) hypertension; F10.90 Alcohol use, unspecified, uncomplicated; R74.01 Elevation of levels of liver transaminase levels; E78.5 Hyperlipidemia, unspecified
CPT/HCPCS: 36415; 80048; 80061; 80076; 84207; 84402; 84403

== ENCOUNTER 2025-03-27 07:55 | Outpatient (AMB) | payer OTHER, SELFPAY ==
[2025-03-27 08:09] VITALS: BP 112/80; PULSE 79; RESP 15; TEMP 36.7; O2SAT 96; BMI 32.3
--- NOTE | 2025-03-27 08:09 | MHC.PC.OV ---
Vital Signs 03/27/25 08:09 Height 6 ft Weight 238 lb BMI 32.3 BP 112/80 Blood Pressure Location Rt brachial Position Sitting Respiration 15 Pulse 79 Pulse Source Pulse Oximeter Temp 98.1 F Temp Source Oral Pulse Oximetry (%) 96 Oxygen Delivery Method Room Air Intake Visit Reasons: 3m follow up Intake Note: Pt is here today for his 3mo. f/u/ also c/o Rt foot pain due to playing basketball x3days ago Allergies No Known Allergies Allergy (Verified 03/27/25 08:44) Medication List - Last Reconciled 03/27/25 by Noemí Sanchez MD hydrochlorothiazide 12.5 mg PO QAM losartan 25 mg PO DAILY metoprolol succinate ER 50 mg PO DAILY rosuvastatin 5 mg PO DAILY sildenafil (Viagra) 100 mg PO DAILY PRN Tobacco use date assessed: 03/27/25 Dental Screening Dental Screen Date: 03/27/25 Did you have a dental visit in the last 12 months?: No Did you have a dental problem in the last 6 months where you did not have access to dental care?: No Was dental information given to patient?: Patient has dentist HPI 3m follow up HPI Details - The patient is a 39-year-old male presenting with right foot pain. - The pain began suddenly on Tuesday while playing basketball. - He was not wearing supportive footwear and the pain localized on the needed and plantar- - Strives towards healthy living, engages in exercise but acknowledges difficulty managing weight due to eating habits. -latest fasting labs showed high triglycerides, with lower LDL cholesterol, fasting glucose in the prediabetic range - Consumes cote and processed snacks occasionally, endeavors to limit high-calorie foods. - Tried to incorporate healthier alternatives, such as yogurt and sweet potatoes with olive oil. -blood pressure within normal limits on current medications [facility] Medical History Dyslipidemia Elevated transaminase level Excessive vitamin B6 intake Impaired fasting glucose Alcohol use disorder Numbness and tingling in both hands Anxiety and depression Essential hypertension Family History Father Substance use disorder Mother Syncope Sister No problems noted. Son No problems noted. Daughter No problems noted. Social History Housing: House Alcohol intake: current Patient Tobacco Use Status: Former Tobacco user e-Cigarette/Vaping Use: Currently Using Second Hand Smoke Exposure: Yes service: No Current occupational status: employed Current occupation: [employer] Current occupational exposures/hazards: Yes Cognitive needs: No Hearing needs: No Vision needs: Yes Questionnaire Thrive Questionnaire Date Thrive assessed: 12/28/24 I am a: Patient What is your living situation today?: I have a steady place to live Within the past 12 months, did the food you bought not last and you didn't have the money to get more?: Never true Within the past 12 months, did you worry whether your food would run out before you got money to buy more?: Never true Do you have trouble paying for medicines?: No Do you have trouble getting transportation to medical appointments?: No Do you have trouble paying your heating and electricity bill?: No Do you have trouble taking care of your child, family member or friend?: No Do you have trouble with day-to-day activities such as bathing, preparing meals, shopping, managing finances, etc.?: No Are you currently unemployed and looking for a job?: No Are you interested in more education?: No Please select the resources that you would like help with: None Currently or been in a relationship where the following occur: No concerns reported THRIVE Score: 0 ALEXX-7 AMB Questionnaire ALEXX-7 Date ALEXX - 7 assessed: 11/16/24 Source: Developed by Drs. Finn Leroy, Karen Humphrey, Angel Meeks and colleagues, with an educational modesto from [employer]. Review of Systems Const Denies headache(s) and Denies weakness Eyes Denies change in vision ENT Denies dizziness, Denies headache(s) and Denies nasal congestion Card Denies chest pain, Denies lightheadedness and Denies dyspnea Resp Denies chest congestion, Denies cough and Denies dyspnea GI Reports no additional complaints Reports no additional complaints Musc Reports as per HPI and Reports abnormal gait Skin/Breast Denies lesions and Denies rash Neuro Reports abnormal gait, Denies dizziness, Denies headache(s), Denies Sensory deficit (Neuro) and Denies weakness Psych Reports no additional complaints Endo Reports no additional complaints Anam/Lymph Reports no additional complaints Aller/Immun Reports no additional complaints Physical exam (Primary Care) Vital Signs: Last Vital Signs Temp 98.1 F 03/27/25 08:09 Pulse 79 03/27/25 08:09 Resp 15 03/27/25 08:09 BP 112/80 03/27/25 08:09 Pulse Ox 96 03/27/25 08:09 Oxygen Delivery Method Room Air 03/27/25 08:09 BMI result Body Mass Index 32.3 Tobacco/Smoking Status: Tobacco use Status Tobacco use date assessed 03/27/25 03/27/25 08:16 Patient Tobacco Use Status Former Tobacco user 03/27/25 08:10 e-Cigarette/Vaping Use Currently Using 03/27/25 08:10 Thrive Assessment: Date of Thrive Assessment Date Thrive assessed 12/28/24 03/27/25 08:10 Currently or been in a relationship where the following occur: No concerns reported Const Other: Slight antalgic gait favoring right foot General: no acute distress and alert Orientation/consciousness: patient oriented x3 HENMT Face and sinus: Yes face symmetric Mouth: Normal oral and palatal mucosa present, oropharynx normal and moist mucous membranes Neck Neck: Yes full ROM and Yes no lymphadenopathy Thyroid: Thyroid normal Resp Effort & Inspection: normal respiratory effort and able to speak in complete sentences Auscultation: clear to auscultation bilaterally Cardio Rate: regular rate Rhythm: regular rhythm Heart sounds: S1 normal heart sound present and S2 normal heart sound present GI Inspection: Yes normal to inspection Palpation (GI): Soft to palpation Auscultation: normal bowel sounds General: Yes no CVA tenderness Male General Exam: Yes normal external exam Back/Spine/Pelvis Back: no CVA tenderness and No back tenderness Skin General skin exam: no rashes or lesions noted Neuro General: patient oriented x3, gait normal, moves all extremities, no focal motor deficits and CN's II-XI intact bilaterally Cognition (Neuro): normal cognition Motor exam (neuro): 5/5 motor strength present throughout Sensory Exam: No Sensory deficit (Neuro) Extrem Other: Pes planus, Slight swelling and tenderness on palpation over medial and plantar aspect of right foot. Normal range of motion of right ankle General: Yes normal to inspection, Yes full ROM, Yes no pedal edema and Yes normal gait Psych Appearance: grossly normal and well kempt Mental Status: mental status grossly normal Speech and movement: Normal speech and movement present Affect: normal affect Results Reviewed Results Reviewed: Name: Ren Hawley Age/Sex: 39/M : 1985 Unit#: [id number] Attend Dr: Noemí Sanchez MD Re03/26/25 Status: DEP REF Location: [facility] Disch: SPEC : [id number] DYLLAN: 03/26/25 STATUS: COMP REQ : [id number] RECD: 03/26/25-[address]: Noemí Sanchez MD COMP: 03/26/25 ENTERED: 03/26/[address]: ORDERED: Liver Panel, Met Prof Fast, Lipid Panel Test Result Flag Reference Sodium 141 135-145 mmol/L Potassium 4.0 3.3-5.1 mmol/L CL 107 96-108 mmol/L CO2 26 22-29 mmol/L Gap 12 12-20 BUN 16 9-16 mg/dL Creat 0.86 0.5-1.4 mg/dL eGFR > 60 Chronic Kidney Disease: Estimated GFR < 60 mL/min/1.73m2 Severe Kidney Disease: Estimated GFR < 15 mL/min/1.73m2 FBS 102 H 60-99 mg/dL A fasting glucose from 100-125 mg/dl is considered impaired (pre-diabetes). CA 9.5 8.4-10.2 mg/dL Total Bili 0.7 0.0-1.0 mg/dL Direct Bili 0.2 0.0-0.5 mg/dL AST (GOT) 37 5-37 U/L ALT (GPT) 56 H 0-40 U/L Protein, Total 7.3 6.5-8.0 g/dL Alb 4.4 3.5-5.0 g/dL Triglyceride 261 H <150 mg/dL Desirable Triglyceride: less than 150 mg/dL Borderline High Triglyceride 150-199 mg/dL High Triglyceride: 200-499 mg/dL Very High Triglyceride: greater than or equal to 5OO mg/dL Cholesterol 223 H <200 mg/dL Desirable Cholesterol: less than 200 mg/dL Borderline High Cholesterol: 200-239 mg/dL High Cholesterol: greater than 239 mg/dL LDL Calculated 126 H <100 mg/dL Desirable LDL: less than 100 mg/dL Near Optimal/Above Optimal LDL: 110-129 mg/dL Borderline High LDL: 130-159 mg/dL High LDL: 160-189 mg/dL Very High LDL: greater than or equal to 190 mg/dL HDL 45 >40 mg/dL Desirable HDL: greater than 40 mg/dL Note: This HDL assay may give artificially low results in patients with liver disease. Alk Phos 64 39-117 U/L Coding Level of Care Code Est Pt Level 4 (96456) Complex EM visit Add On G2211 Diagnoses Pain in metatarsus of right foot M89.8X7 Dyslipidemia E78.5 Elevated transaminase level R74.01 Impaired fasting glucose R73.01 Essential hypertension I10 Assessment & Plan Assessment & Plan (1) Pain in metatarsus of right foot: Code(s): M89.8X7 - Other specified disorders of bone, ankle and foot Plan: Advised to elevate, ice applied to foot, resting of joint, may try massaging diclofenac gel to affected area 4 times a day as needed. X-ray of right foot ordered (2) Dyslipidemia: Code(s): E78.5 - Hyperlipidemia, unspecified Category: Medical Plan: Reviewed recent fasting lipid profile with elevated triglycerides and improving LDL cholesterol. . Continue rosuvastatin , in addition to adherence to low-cholesterol diet and regular exercise, at least 30 minutes 3 to 4 times a week. Advised patient to make healthy food choices, eat more fruits, vegetables, whole grains, wild caught fish and low-fat dairy. Limit amount of meat and fried or fatty food products, as well as processed foods and fast foods. Follow-up scheduled with repeat fasting lipid panel in months. (3) Elevated transaminase level: Code(s): R74.01 - Elevation of levels of liver transaminase levels Category: Medical Plan: Improving liver enzymes, continue cutting back on alcohol intake and better eating habits. (4) Impaired fasting glucose: Code(s): R73.01 - Impaired fasting glucose Category: Medical Plan: Your previous fasting blood sugars were elevated above 100 mg/dL. Impaired glucose metabolism increases the risk for developing diabetes mellitus type 2, as well as heart attack and stroke later on. Lifestyle changes that promotes weight loss, healthy eating habits, and regular exercise are important, and can prevent the progression to diabetes (5) Essential hypertension: Code(s): I10 - Essential (primary) hypertension Category: Medical Plan: Blood pressure stable controlled on hydrochlorothiazide and losartan, as well as metoprolol, continue with present treatment Orders: Orders Comprehensive [place]. Panel Fast 09/14/25 E78.5 - Hyperlipidemia, unspecified, I10 - Essential (primary) hypertension, R73.01 - Impaired fasting glucose, R74.01 - Elevation of levels of liver transaminase levels XR foot RT min 3V Today M89.8X7 - Other specified disorders of bone, ankle and foot Hemoglobin A1c 09/14/25 E78.5 - Hyperlipidemia, unspecified, I10 - Essential (primary) hypertension, R73.01 - Impaired fasting glucose, R74.01 - Elevation of levels of liver transaminase levels Lipid Panel 09/14/25 E78.5 - Hyperlipidemia, unspecified, I10 - Essential (primary) hypertension, R73.01 - Impaired fasting glucose, R74.01 - Elevation of levels of liver transaminase levels
== END 2025-03-27 08:38 | disposition home or self-care (01) ==
LOC: HO.HMCC 07:56
PROVIDERS: PCP Internal Medicine; Visit Provider Internal Medicine
DX: M89.8X7 Other specified disorders of bone, ankle and foot (principal); E78.5 Hyperlipidemia, unspecified; R74.01 Elevation of levels of liver transaminase levels; R73.01 Impaired fasting glucose; I10 Essential (primary) hypertension

== ENCOUNTER 2025-03-27 07:55 | Outpatient (REF) | payer OTHER, SELFPAY ==
--- NOTE | ~2025-03-27 | XR_ITS ---
EXAMINATION: XR FOOT, RIGHT CLINICAL INFORMATION: M89.8X7 - Other specified disorders of bone, ankle and foot COMPARISON: None available. TECHNIQUE: AP, lateral, and oblique views of the right foot. FINDINGS: No fracture, dislocation, or suspicious bone lesion. Normal bone mineralization. Normal alignment. Joint spaces are preserved. No significant arthropathy. Os trigonum noted. Tiny plantar and dorsal calcaneal spurs. No significant ankle joint effusion. Soft tissues appear normal. XR/XR foot RT min 3V IMPRESSION: 1. No acute bony or soft tissue abnormalities. Electronically signed by: Alex Lakhani MD 03/27/2025 09:00 AM EDT
== END 2025-03-27 07:56 | disposition home or self-care (01) ==
LOC: HO.HMGCX 07:55
PROVIDERS: PCP Internal Medicine; Visit Provider Internal Medicine
DX: M89.8X7 Other specified disorders of bone, ankle and foot (principal)
CPT/HCPCS: 73630

== ENCOUNTER → 2025-03-27 08:43 | Outpatient (BNV) | payer OTHER, SELFPAY | PROVIDERS: PCP Internal Medicine; Visit Provider Radiology Diagnostic Radiology | DX: M89.8X7 Other specified disorders of bone, ankle and foot (principal) | CPT/HCPCS: 73630 ==